=== PATIENT | female | born 1990 | race Caucasian/White ===

== ENCOUNTER 2017-06-13 18:19 | Emergency (ER) | payer OTHER, SELFPAY ==
[2017-06-13 18:22] VITALS: BP 124/86; PULSE 103; RESP 20; TEMP 36.9; O2SAT 100; BMI 22.4
--- NOTE | 2017-06-13 20:02 | ED_ITS ---
HPI - SOB/Dyspnea General Chief Complaint: Shortness of Breath/Dyspnea Stated Complaint: SOB,ASTHMA,INHALER NOT WORKING Time Seen by Provider: 06/13/17 20:02 History of Present Illness Patient is a 26-year-old female presenting with increasing shortness of breath on. She says it got significantly worse today. She has a history of asthma she used her albuterol inhaler multiple times without any relief. All no prior history of intubations or hospitalizations. She had asthma as a child, and out grew it, but they came back at . She now has a dry nonproductive cough every time she takes a deep breath. If she sits still and does not move she has no difficulty. Every time she tries to talk or move all the coughing starts. She denies any gross severe shortness of breath or chest pain or palpitations does complain of chest tightness Related Data Home Medications Medication Instructions Recorded Confirmed metoclopramide HCl 10 mg PO Q8H #0 09/13/16 Previous Rx's Medication Instructions Recorded norethindrone (contraceptive) 0.35 mg PO QDAY #1 pac 01/06/17 [[facility]] prednisone 40 mg PO DAILY #8 tab 06/13/17 Allergies Allergy/AdvReac Type Severity Reaction Status Date / Time No Known Allergies Allergy Uncoded 05/19/17 12:18 Review of Systems Review of Systems All systems reviewed & are unremarkable except as noted in HPI and below Constitutional Denies body ache(s), Denies fatigue and Denies fever(s) Eyes Denies itchy eyes ENT Ears, Nose, Mouth, and Throat: Denies throat swelling and Denies tongue swelling Cardiovascular Reports chest pain (Tightness), Denies syncope and Denies rapid heart rate Respiratory Reports as per HPI, Denies chest congestion, Reports cough, Denies excessive phlegm production and Denies stridor Gastrointestinal Gastrointestinal: Denies abdominal pain and Denies vomiting Neurologic Denies syncope Endocrine Denies fatigue Allergic/Immunologic Denies itchy eyes, Denies throat swelling and Denies tongue swelling PFSH Family History Grandmother Age: 76 Heart disease High cholesterol Grandfather Age: 67 Cancer Hypertension High cholesterol Grandmother Age: 65 Skin cancer Heart disease Hypertension Social History Smoking Status: Never smoker MDM - SOB/Dyspnea MDM Narrative Medical decision making narrative: Patient is feeling significantly better after DuoNeb and prednisone. She clinically feels like this is asthma and allergy related. \dry nonproductive cough without fever and worse with deep breathing of clinically reactive airway and asthma related though others diagnosis is have been considered no further testing or imaging needed at this time. Differential Diagnosis Likely community acquired pneumonia, asthma with exacerbation and pulmonary embolism ECG Data Attestation: I personally reviewed and interpreted this ECG as follows: Prior ECG tracings: not available for review Interpretation: Normal sinus rhythm his rate 79 no acute ischemia and no prior Discharge Plan Departure Patient Disposition: Home, Self-Care Clinical Impression: Asthma with exacerbation Discharge Date/Time: 06/13/17 21:28 Interventions: ED Discharge Assessment Last Done: 06/13/17 21:26 Instructions: Asthma -- Adult Activity Restrictions/Additional Instructions: *You have been diagnosed with asthma exacerbation *What to do: Avoid triggers such as dust, pets, pollens as best as possible *Take medications as directed -start prednisone to take once a day as directed may start tomorrow -albuterol every 4 hr with spacer, would do for the next 24 hr while awake, and then taper off *Follow up with your primary care provider in 2-3 days *Return to ER if you should have increasing shortness of breath, chest tightness , and eating albuterol more frequently or not getting any relief or any new, worsening or concerning symptoms Prescriptions: New prednisone 20 mg tablet 40 mg PO DAILY Qty: 8 RF: 0 No Action metoclopramide HCl 10 MG tablet 10 mg PO Q8H Qty: 0 RF: 0 norethindrone (contraceptive) [[facility]] 0.35 MG tablet 0.35 mg PO QDAY Qty: 1 RF: 12 Referrals: Alvino Avilez MD [Primary Care Provider] -
[2017-06-13] MEDS: ALBUTEROL/IPRATROPIUM 3 ML AMPUL INH (20:29)
[2017-06-13 20:34] VITALS: O2SAT 99
[2017-06-13] MEDS: predniSONE 20 MG TABLET 40 MG PO (20:36)
[2017-06-13 20:41] VITALS: BP 99/54; PULSE 87; RESP 18; O2SAT 100
--- NOTE | 2017-06-13 21:13 | PC.NURSE ---
pt reports feeling better. pt talking in full sentences
[2017-06-13 21:26] VITALS: BP 93/53; PULSE 92; RESP 16; O2SAT 100
== END 2017-06-13 21:28 | disposition home or self-care (01) ==
PROVIDERS: Emergency Provider Emergency Medicine; PCP Family Medicine
DX: J45.901 Unspecified asthma with (acute) exacerbation (principal)
CPT/HCPCS: 93005; 94640; 99283

== ENCOUNTER 2017-07-02 15:56 | Emergency (ER) | payer OTHER, SELFPAY ==
[2017-07-02 16:01] VITALS: BP 117/74; PULSE 77; RESP 15; TEMP 36.7; O2SAT 100; BMI 23.4
--- NOTE | 2017-07-02 16:04 | ED_ITS ---
HPI - Abdominal Pain <Julienne Dia PA-C - Last Filed: 07/02/17 21:18> General Chief Complaint: Abdominal Pain Stated Complaint: THINKS SHE HAS A HERNIA Time Seen by Provider: 07/02/17 16:00 Source: patient Mode of arrival: ambulatory Limitations: no limitations History of Present Illness HPI narrative: This 26-year-old female states that she was sent here by her PCP for evaluation today due to possible hernia. States that she had an appointment on Wednesday, but had some increased bloating and abdominal discomfort and is planning to go camping this weekend, so they advised her not to wait. Two weeks ago, she was seen for asthma exacerbation. She had been coughing a lot, and noted a small area of swelling or a bump near her umbilicus. She states that this has been somewhat tender. She states she has had somewhat decreased appetite and forcing herself to eat more. She has had more nausea but no vomiting. She normally has a bowel movement daily but last 1 was 4 days ago, states she is afraid to strain due to the possible hernia which she feels when she does strain. She states that she has not been sick, no fever, feels like asthma exacerbation is getting better. She has a history of gastroparesis diagnosed 5 years ago, states she always has nausea and stomach upset due to this. She takes Reglan as needed which is helpful but causes sleepiness so has not taken recently including for this exacerbation. She states that she was told she had a hernia on endoscopy at that time. She denies any urinary symptoms, compliant with progesterone pill for control. Denies other complaints on systems review Related Data Home Medications Medication Instructions Recorded Confirmed norethindrone (contraceptive) 0.35 mg PO QPM 07/02/17 07/02/17 Allergies Allergy/AdvReac Type Severity Reaction Status Date / Time No Known Allergies Allergy Uncoded 07/02/17 16:01 Review of Systems <Julienne Dia PA-C - Last Filed: 07/02/17 21:18> Review of Systems All systems reviewed & are unremarkable except as noted in HPI and below Exam <Julienne Dia PA-C - Last Filed: 07/02/17 21:18> Narrative Exam Narrative: GENERAL APPEARANCE: Patient sitting comfortably, in no distress. HEENT: PERRL, EOMI, no scleral icterus, conjunctivae pink NECK: Supple LUNGS: Clear to auscultation bilaterally. HEART: Rate and rhythm regular, normal S1 and S2, no S3 or S4. ABDOMEN: Soft, nondistended, bowel sounds present x 4 quadrants, no clear masses palpable, no hepatosplenomegaly. She has mild to moderate periumbilical TTP without guarding or rebound. Just to the L. of the umbilicus with patient standing and straining only it appears that the rectus muscle is slightly more prominent and tender. There is no circumscribed mass EXTREMITIES: No edema, no cyanosis DERMATOLOGIC: No jaundice or exanthem NEUROLOGIC: Alert and oriented with normal speech and coordination Initial Vital Signs Initial Vital Signs: Vital Signs Temperature 98.1 F 07/02/17 16:01 Pulse Rate 77 07/02/17 16:01 Respiratory Rate 15 07/02/17 16:01 Blood Pressure 117/74 07/02/17 16:01 Pulse Oximetry 100 07/02/17 16:01 <Stephen Galvin MD - Last Filed: 07/03/17 15:32> Initial Vital Signs Initial Vital Signs: Vital Signs Temperature 98.1 F 07/02/17 16:01 Pulse Rate 77 07/02/17 16:01 Respiratory Rate 15 07/02/17 16:01 Blood Pressure 117/74 07/02/17 16:01 Pulse Oximetry 100 07/02/17 16:01 Course <Julienne Dia PA-C - Last Filed: 07/02/17 21:18> Hospital Course: Have reviewed with patient today that her exam is not quite typical for a hernia in terms of discrete palpable mass or location, but may certainly have one. There does not appear to be any acute surgical issue. Likely her chronic abdominal bloating and discomfort are exacerbated by constipation, and if she has a hernia that is as well. Advised to treat this. Advised on signs of incarcerated hernia and she agrees to return if any acute worsening, otherwise will follow up with PCP next week for reassessment Orders Ordered: ED Orders 07/02/17 16:22 XR acute abdomen series Stat Vital Signs - 8 hr 07/02/17 16:01 07/02/17 17:18 Temperature 98.1 F Pulse Rate 77 67 Respiratory Rate 15 16 Blood Pressure 117/74 Blood Pressure [Left Arm] 97/67 Pulse Oximetry 100 100 <Stephen Galvin MD - Last Filed: 07/03/17 15:32> Orders Ordered: ED Orders 07/02/17 16:22 XR acute abdomen series Stat Vital Signs - 8 hr 07/02/17 16:01 07/02/17 17:18 Temperature 98.1 F Pulse Rate 77 67 Respiratory Rate 15 16 Blood Pressure 117/74 Blood Pressure [Left Arm] 97/67 Pulse Oximetry 100 100 MDM - Abdominal Pain <Julienne Dia PA-C - Last Filed: 07/02/17 21:18> Imaging Data Abdominal x-ray: Radiologist's impression: View Report History [address] [address] XRay Report Signed Patient: Mary Dimas MR#: [id number] : 1990 Acct:[id number] Age/Sex: 26 / F Date of Service: 07/02/17 Loc: ED Accession Number: [id number] Procedure: XR acute abdomen series Ordering Provider: Julienne Dia P.A-C PROCEDURE: XR ACUTE ABDOMEN SERIES INDICATIONS: constipation TECHNIQUE: One view chest and two views of the abdomen were acquired. COMPARISON: None. FINDINGS: Surgical changes and devices: None. Chest: Lungs are clear. 2 small rounded densities in the left upper lobe between the first and second anterior ribs appear likely to be vessels on end. Heart size is normal. No pleural effusions. No pneumoperitoneum. Abdomen: Bowel gas pattern shows a moderate amount of fecal loading. No small bowel distention. No suspicious calcifications. Visualized solid organ contours appear normal. Bones: No suspicious bony lesions. IMPRESSION: 1. Normal chest. 2. No bowel obstruction or free air. 3. Possible constipation. Dictated by: Kenny Hyatt M.D. on 07/02/2017 at 16:43 Approved by: Kenny Hyatt M.D. on 07/02/2017 at 16:45 Discharge Plan Departure Patient Disposition: Home, Self-Care Clinical Impression: Abdominal pain, Constipation Discharge Date/Time: 07/02/17 17:20 Interventions: ED Discharge Assessment Last Done: 07/02/17 17:20 Instructions: DI for Abdominal Pain-Adult, DI for Constipation Activity Restrictions/Additional Instructions: You have a little bit of asymmetry in the muscle next to the left side of the belly button when you strain versus the right. It is not clear on exam today whether you have a true hernia there, but since this pain and bulging have worsened with your constipation it is reasonable to try treating that and then reassessed. Please start [id number] Colace or docusate, which is stool softener, 100 mg twice daily. That can be increased to as much as 400 mg daily if needed. Increase your intake of fluids, and prune juice may be helpful as well. He may also want to try taking your Reglan this evening. You should see your PCP next week as we talked about to reassess when the constipation is better and determine whether to do a referral or further workup. You should return right away if you have persistent or worsening pain or can get relief with pushing the bulge down as you can now. You should avoid all straining on the abdominal wall including bending, lifting, twisting Prescriptions: No Action norethindrone (contraceptive) 0.35 mg Tablet 0.35 mg PO QPM RF: 0 Referrals: Alvino Avilez MD [Primary Care Provider] - <Stephen Galvin MD - Last Filed: 07/03/17 15:32> Cosign ED Attending Cosignature Attestation: I was the attending of record and available in the ED. I attest to the documentation and agree with the assessment and plan.
--- NOTE | 2017-07-02 16:22 | DI.RAD.S_ITS ---
PROCEDURE: XR ACUTE ABDOMEN SERIES INDICATIONS: constipation TECHNIQUE: One view chest and two views of the abdomen were acquired. COMPARISON: None. FINDINGS: Surgical changes and devices: None. Chest: Lungs are clear. 2 small rounded densities in the left upper lobe between the first and second anterior ribs appear likely to be vessels on end. Heart size is normal. No pleural effusions. No pneumoperitoneum. Abdomen: Bowel gas pattern shows a moderate amount of fecal loading. No small bowel distention. No suspicious calcifications. Visualized solid organ contours appear normal. Bones: No suspicious bony lesions. IMPRESSION: 1. Normal chest. 2. No bowel obstruction or free air. 3. Possible constipation. Dictated by: Kenny Hyatt M.D. on 07/02/2017 at 16:43 Approved by: Kenny Hyatt M.D. on 07/02/2017 at 16:45
[2017-07-02 17:18] VITALS: BP 97/67; PULSE 67; RESP 16; O2SAT 100
== END 2017-07-02 17:20 | disposition home or self-care (01) ==
PROVIDERS: Emergency Provider Internal Medicine; PCP Family Medicine
DX: R10.9 Unspecified abdominal pain (principal); K59.00 Constipation, unspecified
CPT/HCPCS: 74022; 81003; 81025; 99282; 99284

== ENCOUNTER → 2017-09-14 16:23 | Outpatient (CLI) | payer OTHER, SELFPAY ==
[2017-09-14 17:19] LABS: Add Manual Diff / Slide Review NO; Basophils Percent Auto 0.4 % (0-2); Hematocrit 36.6 % (36-46); Hemoglobin 12.9 g/dL (12.0-16.0); Lymphocytes Percent Auto 23.4 % (25-40); Mean Corpuscular HGB Conc 35.1 % (30-36); Mean Corpuscular Hemoglobin 32.5 PG (26-34); Mean Corpuscular Volume 92.5 fL (80-100); Monocytes Percent Auto 7.3 % (3-14); Neutrophils Absolute Auto 7600 /uL (3000-5900); Neutrophils Percent Auto 67.9 % (50-75); Platelet Count 215 X10^3/uL (150-400); Red Blood Cell Count 3.96 X10^6/uL (4.0-5.2); Red Cell Distribution Width 12.7 % (11.6-14.8); White Blood Cell Count 11.2 X10^3/uL (4.5-11.0)
[2017-09-14 19:15] LABS: HIV 1 and 2 Antibody NEGATIVE (NEGATIVE); Hep C Virus Ab w/Reflex Quant NEGATIVE s/c (NEGATIVE); Hepatitis B Surface Antigen NEGATIVE s/c (NEGATIVE); Rubella Antibody IgG 25.8 IU/mL (>15)
[2017-09-16 14:15] LABS: HSV 2 IGG AB < 0.90 index (< 0.90); HSV1IGG < 0.90 index (< 0.90)
[2017-09-16 14:30] LABS: Varicella IgG Antibody < 135.00 Index (< 135.00)
[2017-09-21 10:24] LABS: Rapid Plasma Reagin NON-REACTIVE
== END ==
PROVIDERS: PCP Family Medicine; Visit Provider Family Medicine
DX: Z34.91 Encounter for supervision of normal pregnancy, unspecified, first trimester (principal)
CPT/HCPCS: 36415; 80055; 86695; 86696; 86703; 86787; 86803; 86850; 86900; 86901; 87077; 87086

== ENCOUNTER → 2017-11-08 12:15 | Outpatient (CLI) | payer OTHER, SELFPAY ==
[2017-11-15 10:12] LABS: AFP, Serum 43.1 ng/mL; Calc Gestational Age 15.7; Cigarette Smoker N; Donated Egg NOT GIVEN; Donor Egg Age NOT GIVEN; Estriol, Free 0.88 ng/mL; Inhibin A, Dimeric 229 pg/mL; Maternal Weight 133 lbs; Number of Fetuses 1; Previous Pregnancy Down Syndro NOT GIVEN; hCG, MoM 1.43; hCG, Serum 57.1 IU/mL
== END ==
PROVIDERS: PCP Family Medicine; Visit Provider Family Medicine
DX: Z34.82 Encounter for supervision of other normal pregnancy, second trimester (principal); Z3A.16 16 weeks gestation of pregnancy
CPT/HCPCS: 36415; 82105; 82677; 84702; 86336

== ENCOUNTER → 2017-12-07 10:10 | Outpatient (CLI) | payer OTHER, SELFPAY ==
--- NOTE | 2017-12-07 10:13 | DI.US.S_ITS ---
PROCEDURE: US OB >= 14 WEEKS FETUS INDICATIONS: ANATOMIC SURVEY OUTSIDE/PRIOR DATING DATA: Last menstrual period (LMP): Unknown. LMP-based estimated date of delivery (CHARAN): N./A.. First dating scan (date and location): 09/14/17. Estimated date of delivery (CHARAN) from first dating scan: 05/01/17. TECHNIQUE: Real-time scanning was performed of the fetus, with image documentation and biometric measurements. Endovaginal scanning: No COMPARISON: [facility], , OB <= 14 WEEKS FETUS, 09/14/2017, 16:13. FINDINGS: General: A single living intrauterine gestation is present. Presentation: Transverse. Placenta: Placental position is anterior, without previa. Amniotic fluid index: 13.0 cm, normal range is 5-24 cm. heart rate: 133 beats per minute. Maternal cervical canal: 6.3 cm long. Normal lower limit is 2.5 cm. biometrics: Biparietal diameter: 20 weeks 2 days Head circumference: 20 weeks 2 days Abdominal circumference: 20 weeks 3 days Femur length: 19 weeks 7 days Estimated gestational age from initial scan: 19 weeks 2 days Composite gestational age from present scan: 20 weeks 1 day Estimated weight and percentile: 324 g, 83rd percentile Measurement variability for biometric dating: +/- 7 days from 14 weeks to 15 weeks 6 days gestation, +/- 10 days from 16 weeks to 21 weeks 6 days gestation, +/- 2 weeks from 22 weeks to 27 weeks 6 days gestation, +/- 3 weeks for 28 weeks gestation or later. weight reference: 4500 g or EFW >90/95% is considered macrosomia or large for gestational age. EFW <10% is small for gestational age. EFW 5% or less is considered intra-uterine growth restriction. Anatomic survey: Neuro: Ventricles are non-dilated at less than 10 mm. Cisterna magna is normal at 3-11 mm. Cerebellum is normal in size and morphology. Nuchal skin fold: Normal at less than 6 mm between 14-21 weeks gestational age. Face: Nose and lips, facial profile are normal. Spine: No evidence for spina bifida. Heart: 4-chambered heart is present, with normal ventricular outflow tracts. Diaphragm: Diaphragm is intact. Stomach: Left-sided stomach is present. Kidneys: No hydronephrosis. Normal is less than 5 mm in 2nd trimester, less than 7 mm in 3rd trimester. Cord: 3-vessel cord has orthotopic insertion. Bladder: Normal in size. Extremities: All 4 extremities identified. IMPRESSION: Normal interval growth and normal anatomy. Dictated by: Herberth CLAYTON Interpreted: Adarsh Burciaga MD on 12/07/2017 at 13:53 Approved by: Adarsh Burciaga M.D. on 12/07/2017 at 15:28
== END ==
PROVIDERS: PCP Family Medicine; Visit Provider Family Medicine
DX: Z34.82 Encounter for supervision of other normal pregnancy, second trimester (principal); Z3A.20 20 weeks gestation of pregnancy
CPT/HCPCS: 76811

== ENCOUNTER 2018-01-02 13:03 | Emergency (ER) | payer OTHER, SELFPAY ==
--- NOTE | 2018-01-02 13:07 | ED.SOB ---
HPI - SOB/Dyspnea General Chief Complaint: Shortness of Breath/Dyspnea Stated Complaint: TROUBLE CATCHING BREATH, 24 WEEKS PREG Time Seen by Provider: 01/02/18 13:06 Source: patient Mode of arrival: ambulatory Limitations: no limitations History of Present Illness 27-year-old female at 24 weeks EGA here for evaluation of shortness of breath and chest pressure. Patient states this has been going on for the past couple days. Was a rather sudden onset last week. She stated that she did have a fever on Wednesday but not today. She states that she felt like she had the flu on Wednesday with fevers and body aches and chills. She is coughing that is nonproductive. Has some sinus congestion. No urinary symptoms. No loss of fluid, no vaginal bleeding. Patient also with a recent flight from [place] just prior to the onset of the symptoms. No lower extremity swelling. Related Data Home Medications Medication Instructions Recorded Confirmed norethindrone (contraceptive) 0.35 mg PO QPM 07/02/17 07/14/17 Previous Rx's Medication Instructions Recorded docusate sodium 100 mg capsule 100 mg PO BID #60 cap 09/01/17 ondansetron 4 mg disintegrating 4 mg PO Q6H PRN #30 tab 09/01/17 tablet metoclopramide 10 mg tablet See Label Instructions .ROUTE TID 10/27/17 PRN #60 tab azithromycin See Label Instructions .ROUTE 01/02/18 .COMPLEX #6 tab Allergies Allergy/AdvReac Type Severity Reaction Status Date / Time No Known Drug Allergies Allergy Verified 01/02/18 13:30 Review of Systems Constitutional Reports fatigue, Reports fever(s) and Denies headache(s) ENT Ears, Nose, Mouth, and Throat: Denies vertigo and Denies headache(s) Cardiovascular Reports chest pain (Described as a pressure), Denies pedal edema, Denies irregular heart rhythm, Denies palpitations, Reports dyspnea and Reports dyspnea on exertion Respiratory Reports cough, Reports pain with cough, Reports dyspnea, Reports dyspnea on exertion and Denies wheezing Gastrointestinal Gastrointestinal: Denies abdominal pain, Denies nausea and Denies vomiting Genitourinary Denies dysuria and Denies vaginal discharge Musculoskeletal Denies myalgias and Denies arthralgias Integumentary/Breasts Denies lesions and Denies rash Neurologic Denies vertigo and Denies headache(s) Endocrine Reports fatigue and Denies palpitations Hematologic/Lymphatic Comments: Not on anticoagulation Allergic/Immunologic Denies wheezing PFSH Medical History No significant past surgical history (Acute) Asthma with allergic rhinitis (Chronic) Eczema (Chronic) Frequent UTI (Chronic) Gastroparesis (Chronic) Irregular menstrual cycle (Chronic) Migraines (Chronic) Social History marital status: Smoking Status: Never smoker Exam Initial Vital Signs Initial Vital Signs: Vital Signs Temperature 97.9 F 01/02/18 13:16 Pulse Rate 112 H 01/02/18 13:16 Respiratory Rate 20 01/02/18 13:16 Blood Pressure 115/67 01/02/18 13:16 Pulse Oximetry 100 01/02/18 13:16 Const General: cooperative, well developed and well groomed Orientation: alert, awake and oriented x3 HENMT Head: normal to inspection and normocephalic Chest Chest: normal inspection of the chest Resp Effort & Inspection: labored, no pursed lip breathing, no retractions, tachypneic and no use of accessory muscles Auscultation: clear to auscultation bilaterally, no rhonchi and no wheezes Cardio Rate: tachycardic Rhythm: regular rhythm Pulses: radial pulses present GI Inspection: distended () Palpation: soft, No firm and No tender Skin Lesions: no lesions Rashes: no rashes Neuro General: alert, awake and oriented x3 Cognition: normal cognition Speech: speech normal Extrem General: normal to inspection, capillary refill normal, no pedal edema and No edema Psych Appearance: grossly normal and well kempt Course Orders Ordered: ED Orders 01/02/18 13:29 CT angio chest PE protocol Stat B Type Natriuretic Peptide Stat Basic Metabolic Panel Stat Complete Blood Count AUTO DIFF Stat Influenza A and B by PCR Rapid Stat Troponin I Stat RT Consult Eval and Treat Now Discontinued Medications Albuterol (Ventolin) 2.5 mg INH NOW ONE Stop: 01/02/18 13:28 Last Admin: 01/02/18 13:31 Dose: 2.5 mg Sodium Chloride (Normal Saline 0.9%) 1,000 mls @ 500 mls/hr IV BOLUS ONE Stop: 01/02/18 15:26 Last Admin: 01/02/18 13:42 Dose: 500 mls/hr Vital Signs - 8 hr 01/02/18 13:16 01/02/18 13:31 01/02/18 13:44 Temperature 97.9 F Pulse Rate 112 H 95 H 101 H Respiratory Rate 20 15 15 Blood Pressure 115/67 Blood Pressure [Right Arm] 99/53 L Pulse Oximetry 100 100 99 01/02/18 14:35 01/02/18 15:06 Temperature Pulse Rate 89 102 H Respiratory Rate 13 18 Blood Pressure Blood Pressure [Right Arm] 95/49 L 91/51 L Pulse Oximetry 100 98 MDM - SOB/Dyspnea Lab Data Attestation: I reviewed the patient's lab results. Result diagrams: 01/02/18 13:29 01/02/18 13:29 Lab Results 01/02/18 01/02/18 01/02/18 Range/Units 13:29 13:29 13:29 WBC 8.8 (4.5-11.0) X10^3/uL RBC 3.35 L (4.0-5.2) X10^6/uL Hgb 11.3 L (12.0-16.0) g/dL Hct 32.1 L (36-46) % MCV 95.9 (80-100) fL MCH 33.8 (26-34) PG MCHC 35.3 (30-36) % RDW 12.5 (11.6-14.8) % Plt Count 195 (150-400) X10^3/uL Neut % (Auto) 75.9 H (50-75) % Lymph % (Auto) 16.8 L (25-40) % [place] % (Auto) 6.3 (3-14) % Eos % (Auto) 0.6 L (2-4) % Baso % (Auto) 0.4 (0-2) % Neut # (Auto) 6700 H (5585-2402) /uL Sodium 140 (137-145) mmol/L Potassium 3.3 L (3.4-5.1) mmol/L Chloride 106 (98-107) mmol/L Carbon Dioxide 23 (22-32) mmol/L BUN 7 (7-17) mg/dL Creatinine 0.40 L (0.52-1.04) mg/dL Estimated GFR > 60.0 (>60) mL/min BUN/Creatinine Ratio 17.5 (6-22) Glucose 94 (70-100) mg/dL Calcium 8.6 (8.4-10.2) mg/dL Troponin I < 0.012 (0.01-0.034) ng/mL B-Natriuretic Peptide < 30.0 (<100) Influenza A & B (PCR) (Negative) 01/02/18 Range/Units 13:29 WBC (4.5-11.0) X10^3/uL RBC (4.0-5.2) X10^6/uL Hgb (12.0-16.0) g/dL Hct (36-46) % MCV (80-100) fL MCH (26-34) PG MCHC (30-36) % RDW (11.6-14.8) % Plt Count (150-400) X10^3/uL Neut % (Auto) (50-75) % Lymph % (Auto) (25-40) % [place] % (Auto) (3-14) % Eos % (Auto) (2-4) % Baso % (Auto) (0-2) % Neut # (Auto) (0365-2688) /uL Sodium (137-145) mmol/L Potassium (3.4-5.1) mmol/L Chloride (98-107) mmol/L Carbon Dioxide (22-32) mmol/L BUN (7-17) mg/dL Creatinine (0.52-1.04) mg/dL Estimated GFR (>60) mL/min BUN/Creatinine Ratio (6-22) Glucose (70-100) mg/dL Calcium (8.4-10.2) mg/dL Troponin I (0.01-0.034) ng/mL B-Natriuretic Peptide (<100) Influenza A & B (PCR) Negative (Negative) Imaging Data CT scan - chest: Radiologist's impression: PROCEDURE: CT ANGIO CHEST PE PROTOCOL INDICATIONS: Chest pain, shortness of breath, tachycardia, 24 weeks TECHNIQUE: After the administration of intravenous contrast, 2 mm thick sections acquired from the pulmonary apices to the posterior costophrenic angles. 3-dimensional maximum intensity projection (MIP) coronal and sagittal reformats were then acquired through the thorax. For radiation dose reduction, the following was used: automated exposure control, adjustment of mA and/or kV according to patient size. COMPARISON: None. FINDINGS: Image quality: Excellent. Pulmonary arteries: Pulmonary arteries are normal in size, and demonstrate no intraluminal filling defects to suggest central pulmonary embolism. Lungs and pleura: Multiple bilateral areas of rounded pulmonary opacities are present the largest in the right lower lobe measuring approximately 15 mm. There are approximately 20-24 foci identified. Mediastinum: Heart size is normal, without pericardial effusion. No mediastinal or hilar adenopathy. Thoracic aorta is normal in caliber and enhancement. Esophagus is normal in caliber, without hiatal hernia. Bones and chest wall: No suspicious bony lesions. Ribs and thoracic spine appear intact throughout. Thyroid gland is unremarkable. No axillary or supraclavicular adenopathy. Abdomen: Visualized upper abdominal solid organs appear normal in the early arterial phase of enhancement. IMPRESSION: 1. Multifocal areas of patchy rounded pulmonary opacities as above. Overall appearance is suggestive of infection/inflammation. However, given the multifocal nature of lesion, other etiologies such as metastatic disease cannot be excluded. Recommend short interval imaging followup for infection after appropriate therapy to document resolution and exclude persistence of underlying mass lesions raising concern for malignancy. Dictated by: Mercy Bailey M.D. on 01/02/2018 at 14:56 Approved by: Mercy Bailey M.D. on 01/02/2018 at 14:59 ECG Data Attestation: I personally reviewed and interpreted this ECG as follows: Prior ECG tracings: not available for review Interpretation: Sinus tachycardia Ventricular rate of 100 Normal QRS Normal QTC Normal intervals Normal axis No ST T wave changes MDM Narrative Medical decision making narrative: Patient is tachycardic and tachypneic and short of breath in the setting of and her recent airline flight. Had a high concern for pulmonary embolism. Had a long discussion with the patient regarding this. We did discuss that we would need a CT scan to evaluate for this however given her status her child would be exposed to radiation. We discussed the benefits to include diagnosing a pulmonary embolism which could potentially be life-threatening verses the CT scan. After this discussion the patient expressed understanding of all of these risks. She expressed understanding that her child would be exposed to some radiation. She did agree to have the CT scan performed. The consent was signed. She had no questions prior to obtaining the CT. This did come back negative for pulmonary embolism. Labs were unremarkable. Her heart rate did improve while she was here in the ER. She was given a albuterol neb which did not seem to help her symptoms. The CT scan showed multiple patchy infiltrates and in the setting of a productive cough and fever within the past 48 hr I do suspect pneumonia over malignancy. I did inform the patient that she needed to follow up with her primary doctor regarding the CT scan when she is done with the antibiotics to make sure that the areas have cleared. She expressed understanding of this. I feel like she is stable for discharge. Will send home with azithromycin. She has no risk factors for healthcare associated pneumonia. She was given return precautions. All questions were answered. She expressed agreement with this plan. Discharge Plan Departure Patient Disposition: Home Clinical Impression: Pneumonia Instructions: Medications and , DI for Pneumonia -- Adult Activity Restrictions/Additional Instructions: Recommend you contact your primary care doctor and also your OB regarding her diagnosis today. You also need to talk with your primary care doctor regarding follow-up to make sure the findings on the CT scan resolved with the antibiotics that you were given today. Return to the emergency department for any new symptoms, worsening shortness of breath, chest pain, rashes or any other concerning symptoms. Prescriptions: New azithromycin 250 mg tablet See Label Instructions .ROUTE .COMPLEX Qty: 6 RF: 0 No Action docusate sodium [Colace] 100 mg capsule 100 mg PO BID Qty: 60 RF: 3 ondansetron [Zofran ODT] 4 mg tablet,disintegrating 4 mg PO Q6H PRN (Reason: nausea and vomiting) Qty: 30 RF: 0 metoclopramide HCl [Reglan] 10 mg tablet See Label Instructions .ROUTE TID PRN (Reason: nausea and vomiting) Qty: 60 RF: 2 norethindrone (contraceptive) 0.35 mg Tablet 0.35 mg PO QPM RF: 0
[2018-01-02 13:16] VITALS: BP 115/67; PULSE 112; RESP 20; TEMP 36.6; O2SAT 100; BMI 26.9
--- NOTE | 2018-01-02 13:29 | DI.CT.S_ITS ---
PROCEDURE: CT ANGIO CHEST PE PROTOCOL INDICATIONS: Chest pain, shortness of breath, tachycardia, 24 weeks TECHNIQUE: After the administration of intravenous contrast, 2 mm thick sections acquired from the pulmonary apices to the posterior costophrenic angles. 3-dimensional maximum intensity projection (MIP) coronal and sagittal reformats were then acquired through the thorax. For radiation dose reduction, the following was used: automated exposure control, adjustment of mA and/or kV according to patient size. COMPARISON: None. FINDINGS: Image quality: Excellent. Pulmonary arteries: Pulmonary arteries are normal in size, and demonstrate no intraluminal filling defects to suggest central pulmonary embolism. Lungs and pleura: Multiple bilateral areas of rounded pulmonary opacities are present the largest in the right lower lobe measuring approximately 15 mm. There are approximately 20-24 foci identified. Mediastinum: Heart size is normal, without pericardial effusion. No mediastinal or hilar adenopathy. Thoracic aorta is normal in caliber and enhancement. Esophagus is normal in caliber, without hiatal hernia. Bones and chest wall: No suspicious bony lesions. Ribs and thoracic spine appear intact throughout. Thyroid gland is unremarkable. No axillary or supraclavicular adenopathy. Abdomen: Visualized upper abdominal solid organs appear normal in the early arterial phase of enhancement. IMPRESSION: 1. Multifocal areas of patchy rounded pulmonary opacities as above. Overall appearance is suggestive of infection/inflammation. However, given the multifocal nature of lesion, other etiologies such as metastatic disease cannot be excluded. Recommend short interval imaging followup for infection after appropriate therapy to document resolution and exclude persistence of underlying mass lesions raising concern for malignancy. Dictated by: Mercy Bailey M.D. on 01/02/2018 at 14:56 Approved by: Mercy Bailey M.D. on 01/02/2018 at 14:59
[2018-01-02 13:31] VITALS: PULSE 95; RESP 15; O2SAT 100
[2018-01-02] MEDS: ALBUTEROL 2.5 MG/3 ML NEB (ADULT) INH (13:31)
[2018-01-02] MEDS: SODIUM CHLORIDE 0.9% 1,000 ML 500 ML IV (13:42)
[2018-01-02 13:44] VITALS: BP 99/53; PULSE 101; RESP 15; O2SAT 99
[2018-01-02 13:49] LABS: Add Manual Diff / Slide Review NO; Basophils Percent Auto 0.4 % (0-2); Eosinophils Percent Auto 0.6 % (2-4); Hematocrit 32.1 % (36-46); Hemoglobin 11.3 g/dL (12.0-16.0); Lymphocytes Percent Auto 16.8 % (25-40); Mean Corpuscular HGB Conc 35.3 % (30-36); Mean Corpuscular Hemoglobin 33.8 PG (26-34); Mean Corpuscular Volume 95.9 fL (80-100); Monocytes Percent Auto 6.3 % (3-14); Neutrophils Absolute Auto 6700 /uL (3000-5900); Neutrophils Percent Auto 75.9 % (50-75); Platelet Count 195 X10^3/uL (150-400); Red Blood Cell Count 3.35 X10^6/uL (4.0-5.2); Red Cell Distribution Width 12.5 % (11.6-14.8); White Blood Cell Count 8.8 X10^3/uL (4.5-11.0)
--- NOTE | 2018-01-02 13:53 | PC.NURSE ---
Pt having difficulty speaking in full sentences while walking. Shortness of breath is improved with upright position and rest. Currently 24 weeks . No complications with current or prior pregnancies. Got back from [place] on Wednesday via airplane. Had a sore throat on Wednesday, fever or Wednesday, and worsening cough and shortness of breath Wednesday and today.
[2018-01-02 14:07] LABS: BUN Creatinine Ratio 17.5 (6-22); Blood Urea Nitrogen 7 mg/dL (7-17); Calcium 8.6 mg/dL (8.4-10.2); Carbon Dioxide 23 mmol/L (22-32); Chloride 106 mmol/L (98-107); Estimated Glomerular Filt Rate > 60.0 mL/min (>60); Glucose 94 mg/dL (70-100); HEMOLYSIS < 15 (0-50); Potassium 3.3 mmol/L (3.4-5.1); Sodium 140 mmol/L (137-145)
[2018-01-02 14:23] LABS: Troponin I < 0.012 ng/mL (0.01-0.034)
[2018-01-02 14:25] LABS: B Type Natriuretic Peptide < 30.0 (<100)
[2018-01-02 14:35] VITALS: BP 95/49; PULSE 89; RESP 13; O2SAT 100
[2018-01-02 15:06] VITALS: BP 91/51; PULSE 102; RESP 18; O2SAT 98
[2018-01-02 15:22] LABS: Influenza A and B by PCR Rapid Negative (Negative)
== END 2018-01-02 15:57 | disposition home or self-care (01) ==
PROVIDERS: Emergency Provider Emergency Medicine; PCP Family Medicine
DX: O99.512 Diseases of the respiratory system complicating pregnancy, second trimester (principal); Z3A.24 24 weeks gestation of pregnancy
CPT/HCPCS: 36591; 71275; 80048; 83880; 84484; 85025; 87400; 93005; 94640; 96360; 96361; 99283; 99284; J7613; Q9967

== ENCOUNTER → 2018-01-26 10:58 | Outpatient (CLI) | payer OTHER, SELFPAY ==
[2018-01-26 12:32] LABS: Hematocrit 31.9 % (36-46); Hemoglobin 11.2 g/dL (12.0-16.0)
[2018-01-26 12:51] LABS: GTT (PREG) 1 Hour PP 50gm Dose 134 mg/dL (76-139)
== END ==
PROVIDERS: PCP Family Medicine; Visit Provider Family Medicine
DX: Z34.82 Encounter for supervision of other normal pregnancy, second trimester (principal); Z3A.24 24 weeks gestation of pregnancy
CPT/HCPCS: 36415; 82950; 85014; 85018

== ENCOUNTER → 2018-04-06 10:54 | Outpatient (CLI) | payer OTHER, SELFPAY ==
[2018-04-07 14:04] LABS: Strep Grp B PCR NEG for Grp B Strep
== END ==
PROVIDERS: PCP Family Medicine; Visit Provider Family Medicine
DX: Z34.83 Encounter for supervision of other normal pregnancy, third trimester (principal); Z3A.37 37 weeks gestation of pregnancy
CPT/HCPCS: 87653

== ENCOUNTER 2018-04-25 10:05 | Inpatient (IN) | payer OTHER, SELFPAY ==
[2018-04-25 13:28] VITALS: BP 104/65
[2018-04-25 13:39] LABS: Add Manual Diff / Slide Review NO; Basophils Absolute Auto 100 /uL (0-100); Eosinophils Absolute Auto 0 /uL (0-450); Eosinophils Percent Auto 0.4 % (2-4); Hemoglobin 10.4 g/dL (12.0-16.0); Lymphocytes Absolute Auto 2200 /uL (1100-4500); Lymphocytes Percent Auto 22.1 % (25-40); Mean Corpuscular HGB Conc 33.5 % (30-36); Mean Corpuscular Hemoglobin 30.4 PG (26-34); Mean Corpuscular Volume 90.8 fL (80-100); Monocytes Absolute Auto 700 /uL (0-900); Monocytes Percent Auto 6.6 % (3-14); Neutrophils Absolute Auto 7000 /uL (1500-7000); Neutrophils Percent Auto 69.9 % (50-75); Platelet Count 213 X10^3/uL (150-400); Red Blood Cell Count 3.41 X10^6/uL (4.0-5.2); Red Cell Distribution Width 13.2 % (11.6-14.8); White Blood Cell Count 10.1 X10^3/uL (4.5-11.0)
[2018-04-25] MEDS: LACTATED RINGERS 1,000 ML 100 ML IV (16:04)
--- NOTE | 2018-04-25 17:29 | PM.HP.1 ---
History of Present Illness Date Patient Seen: 04/25/18 Time Patient Seen: 12:00 Chief complaint: OBSERVATION Narrative: 26-year-old G3 para 2 with an estimated due date of 04/27/2018 consistent with LMP and early ultrasound. Patient presents to the labor and delivery floor with contractions up to every 2 min apart. Worse with activity better with rest. Patient is not complaining of bleeding or spotting or leaking of fluid. She has had good baby activity. Patient is not complaining of fevers chills nausea vomiting and is in good health. She previously had rapid deliveries. On examination in the Center. Patient is aixa intermittently dilated to 4 cm. Stretches cervix 80% effaced -1 station. Patient was sent toe walk for an hour and then came back in her cervix had changed on repeat evaluation. At that point she was transferred to labor and delivery floor and IV was started. history patient started care at approximately 8 weeks of gestational age. She had routine follow-up. She had a total weight gain of a 25 lb. She had no problems during her other than some mild hip pain and sciatic pain and a history of previous rapid labors. She was on vitamins and vitamin C during her . labs blood type A positive antibody screen negative CBC hematocrit 36.6 platelet count 215 VDRL nonreactive hepatitis-B surface antigen negative HIV negative rubella immune hep C negative HSV 1 HSV 2-varicella immune 2nd trimester is aneuploidy screening is negative is glucose challenge test was 134 ultrasound at 20 weeks showed normal growth and normal anatomy scan GBS status is negative. Patient's past history includes seasonal allergies migraine headaches intermittent and frequent urinary tract infection eczema and umbilical hernia Surgeries umbilical hernia surgery Patient History Medical History No significant past surgical history (Acute) Asthma with allergic rhinitis (Chronic) Eczema (Chronic) Frequent UTI (Chronic) Gastroparesis (Chronic) Irregular menstrual cycle (Chronic) Migraines (Chronic) Family & Social History Tobacco & Substance use: Smoking Status Never smoker alcohol intake frequency holiday/special occasion Substance Use Type does not use Meds Home Medications Medication Instructions Recorded Confirmed Type No Known Home Medications 04/25/18 04/25/18 History Allergies Allergy/AdvReac Type Severity Reaction Status Date / Time No Known Drug Allergies Allergy Verified 01/02/18 13:30 Exam Vital Signs (past 8 hours): - 04/25/18 13:28 Blood Pressure 104/65 Narrative Exam Narrative: . General: Alert no apparent distress. Affect is appropriate. Aixa it is uncomfortable. HEENT: Neck is supple without lymphadenopathy pupils equal round and reactive. Cardio: S1-S2 regular rate and rhythm. Respiratory: Lungs clear to auscultation. Abdomen: Gravid. Extremities: Normal deep tendon reflexes trace edema. [place]: Aixa intermittently heart tones: heart tones 135-140 category 1 Objective Labs Result Diagrams: 04/25/18 13:20 Labs: Laboratory Results - last 24 hr 04/25/18 04/25/18 13:20 13:20 WBC 10.1 RBC 3.41 L Hgb 10.4 L Hct 31.0 L MCV 90.8 MCH 30.4 MCHC 33.5 RDW 13.2 Plt Count 213 Neut % (Auto) 69.9 Lymph % (Auto) 22.1 L [place] % (Auto) 6.6 Eos % (Auto) 0.4 L Baso % (Auto) 1.0 Neut # (Auto) 7000 Lymph # (Auto) 2200 [place] # (Auto) 700 Eos # (Auto) 0 Baso # (Auto) 100 Blood Type A Positive Antibody Screen Negative Assessment & Plan Assessment & Plan narrative: 27-year-old G3 para 2 at term in early labor. Patient has a history of rapid deliveries. She will be transferred from the observation room to the labor room an IV was started. heart tones vital signs and blood will be drawn. Which were all stable she will have amniotomy and will monitor closely for breakfast vela of labor. She would like an epidural. Patient's consent was signed risks benefits of the labor and delivery reviewed with the patient.
--- NOTE | 2018-04-25 17:34 | P.HP_ITS ---
History of Present Illness Date Patient Seen: 04/25/18 Time Patient Seen: 12:00 Chief complaint: OBSERVATION Narrative: 26-year-old G3 para 2 with an estimated due date of 04/27/2018 consistent with LMP and early ultrasound. Patient presents to the labor and delivery floor with contractions up to every 2 min apart. Worse with activity better with rest. Patient is not complaining of bleeding or spotting or leaking of fluid. She has had good baby activity. Patient is not complaining of fevers chills nausea vomiting and is in good health. She previously had rapid deliveries. On examination in the Center. Patient is aixa intermittently dilated to 4 cm. Stretches cervix 80% effaced -1 station. Patient was sent toe walk for an hour and then came back in her cervix had changed on repeat evaluation. At that point she was transferred to labor and delivery floor and IV was started. history patient started care at approximately 8 weeks of gestational ag e. She had routine follow-up. She had a total weight gain of a 25 lb. She had no problems during her other than some mild hip pain and sciatic pain and a history of previous rapid labors. She was on vitamins and vitamin C during her . labs blood type A positive antibody screen negative CBC hematocrit 36.6 platelet count 215 VDRL nonreactive hepatitis-B surface antigen negative HIV negative rubella immune hep C negative HSV 1 HSV 2-varicella immune 2nd tr imester is aneuploidy screening is negative is glucose challenge test was 134 ultrasound at 20 weeks showed normal growth and normal anatomy scan GBS status is negative. Patient's past history includes seasonal allergies migraine headaches intermittent and frequent urinary tract infection eczema and umbilical hernia Surgeries umbilical hernia surgery Patient History Medical History No significant past surgical history (Acute) Asthma with allergic rhinitis (Chronic) Eczema (Chronic) Frequent UTI (Chronic) Gastroparesis (Chronic) Irregular menstrual cycle (Chronic) Migraines (Chronic) Family & Social History Tobacco & Substance use: Smoking Status Never smoker alcohol intake frequency holiday/special occasion Substance Use Type does not use Meds Home Medications Medication Instructions Recorded Confirmed Type No Known Home Medications 04/25/18 04/25/18 History Allergies Allergy/AdvReac Type Severity Reaction Status Date / Time No Known Drug Allergies Allergy Verified 01/02/18 13:30 Exam Vital Signs (past 8 hours): - 04/25/18 13:28 Blood Pressure 104/65 Narrative Exam Narrative: . General: Alert no apparent distress. Affect is appropriate. [place] it is uncomfortable. HEENT: Neck is supple without lymphadenopathy pupils equal round and reactive. Cardio: S1-S2 regular rate and rhythm. Respiratory: Lungs clear to auscultation. Abdomen: Gravid. Extremities: Normal deep tendon reflexes trace edema. [place]: Aixa intermittently heart tones: heart tones 135-140 category 1 Objective Labs Result Diagrams: 04/25/18 13:20 Labs: Laboratory Results - last 24 hr 04/25/18 04/25/18 13:20 13:20 WBC 10.1 RBC 3.41 L Hgb 10.4 L Hct 31.0 L MCV 90.8 MCH 30.4 MCHC 33.5 RDW 13.2 Plt Count 213 Neut % (Auto) 69.9 Lymph % (Auto) 22.1 L [place] % (Auto) 6.6 Eos % (Auto) 0.4 L Baso % (Auto) 1.0 Neut # (Auto) 7000 Lymph # (Auto) 2200 [place] # (Auto) 700 Eos # (Auto) 0 Baso # (Auto) 100 Blood Type A Positive Antibody Screen Negative Assessment & Plan Assessment & Plan narrative: 27-year-old G3 para 2 at term in early labor. Patient has a history of rapid deliveries. She will be transferred from the observation room to the labor room an IV was started. heart tones vital signs and blood will be drawn. Which were all stable she will have amniotomy and will monitor closely for breakfast vela of labor. She would like an epidural. Patient's consent was signed risks benefits of the labor and delivery reviewed with the patient.
[2018-04-25] MEDS: OXYTOCIN 10 UNIT/ML VIAL IM (18:16)
--- NOTE | 2018-04-25 18:27 | PM.PROC.1 ---
Procedures Date/Time Date of procedure: 04/25/18 Time of procedure: 18:27 General Procedure description: Stage I of labor approximately 5 hr. During stage I category 1 tracing. Patient had amniotomy of clear fluid. Patient had an epidural with great results. Patient has made great cervical change and good descent through the canal from -1 to +1 station. Stage II of labor approximately 1/2 an hour. Patient had category 1 tracing. With mild head compression which cause some variable heart rates. Patient had delivery of head without difficulty. There was a tight nuchal cord which was clamped and cut at the delivery of the head and the baby then spontaneously delivered well. Baby had vigorous cry. Apgars were 8 and 9. Stage III of labor 10 min delivery of intact placenta with three-vessel cord. No vaginal cervical or urethral 3 years. Uterus was firm. Estimated blood loss 200 cc.
[2018-04-25] MEDS: miSOPROStol 200 MCG TABLET 800 MCG PR (19:50)
--- NOTE | 2018-04-25 19:52 | P.PN_ITS ---
Subjective Date Patient Seen: 04/25/18 Time Patient Seen: 19:49 Interval history: bleeding Exam Vital Signs (past 8 hours): - 04/25/18 13:28 Blood Pressure 104/65 Narrative Exam Narrative: I was present in Labor and delivery when the nurses caring for Mary or concerned about the amount of bleeding she was doing. They measured 1 clot that was over 500 cc. Her uterus did firm with massage but then would relax and she would have more significant bleeding with massage. Decision was made to place 800 mg of Cytotec per rectum. Objective Labs Result Diagrams: 04/25/18 13:20 Labs: Laboratory Results - last 24 hr 04/25/18 04/25/18 13:20 13:20 WBC 10.1 RBC 3.41 L Hgb 10.4 L Hct 31.0 L MCV 90.8 MCH 30.4 MCHC 33.5 RDW 13.2 Plt Count 213 Neut % (Auto) 69.9 Lymph % (Auto) 22.1 L [place] % (Auto) 6.6 Eos % (Auto) 0.4 L Baso % (Auto) 1.0 Neut # (Auto) 7000 Lymph # (Auto) 2200 [place] # (Auto) 700 Eos # (Auto) 0 Baso # (Auto) 100 Blood Type A Positive Antibody Screen Negative Assessment & Plan (1) hemorrhage: Current visit: Yes Status: Acute Assessment & Plan narrative: Patient with hemorrhage. She was given Pitocin. 800 mcg of Cytotec placed rectally. Will monitor for further bleeding
[2018-04-25] MEDS: IBUPROFEN 600 MG TABLET PO (23:53)
[2018-04-26] MEDS: IBUPROFEN 600 MG TABLET PO ×2 (07:13→13:54)
[2018-04-26] MEDS: HYDROCODONE/ACET 5/325 TABLET 1 TAB PO (07:14)
--- NOTE | 2018-04-26 08:11 | PM.DS.1 ---
History of Present Illness Chief complaint: OBSERVATION Narrative: 26-year-old G3 para 2 with an estimated due date of 04/27/2018 consistent with LMP and early ultrasound. Patient presents to the labor and delivery floor with contractions up to every 2 min apart. Worse with activity better with rest. Patient is not complaining of bleeding or spotting or leaking of fluid. She has had good baby activity. Patient is not complaining of fevers chills nausea vomiting and is in good health. She previously had rapid deliveries. On examination in the Center. Patient is aixa intermittently dilated to 4 cm. Stretches cervix 80% effaced -1 station. Patient was sent toe walk for an hour and then came back in her cervix had changed on repeat evaluation. At that point she was transferred to labor and delivery floor and IV was started. history patient started care at approximately 8 weeks of gestational age. She had routine follow-up. She had a total weight gain of a 25 lb. She had no problems during her other than some mild hip pain and sciatic pain and a history of previous rapid labors. She was on vitamins and vitamin C during her . labs blood type A positive antibody screen negative CBC hematocrit 36.6 platelet count 215 VDRL nonreactive hepatitis-B surface antigen negative HIV negative rubella immune hep C negative HSV 1 HSV 2-varicella immune 2nd trimester is aneuploidy screening is negative is glucose challenge test was 134 ultrasound at 20 weeks showed normal growth and normal anatomy scan GBS status is negative. Patient's past history includes seasonal allergies migraine headaches intermittent and frequent urinary tract infection eczema and umbilical hernia Surgeries umbilical hernia surgery Discharge Providers Date of admission: 04/25/18 10:05 Discharge Date: 04/26/18 Primary care physician: Alvino Avilez MD Consults: 04/25/18 18:32 Consult to Brand Leader Routine Comment: Discharge provider: Alvino Avilez MD Summary Discharge Diagnosis: 27-year-old G3 now para 3 vaginal delivery of term male Routine post paulino care Hospital Course: Patient admitted the hospital in early active labor. At 3-4 cm aixa intermittently. Patient had rupture of membranes with clear fluid. Proceeded to then deliver vaginally a male without difficulty Apgars were 8 and 9. Blood loss was 200. Mom had routine care. Hemoglobin hematocrit was mildly low. Her pain was well controlled with ibuprofen vitamin she was given iron supplement mentation and stool softener. She was ambulating. She was tolerating her diet. Vaginal bleeding was appropriate. Breast-feeding was going well. Exam Narrative Exam Narrative: General: Alert no apparent distress HEENT: Pupils equal round and reactive or mucosa is moist neck is supple Cardio: S1-S2 regular rate rhythm Respiratory: Lungs are clear no wheezes or crackles Abdomen: Uterus is firm and at the umbilicus. Extremities: Mild trace edema. Negative Akers's. Objective Labs Result Diagrams: 04/25/18 13:20 Labs: Laboratory Results - last 24 hr 04/25/18 04/25/18 13:20 13:20 WBC 10.1 RBC 3.41 L Hgb 10.4 L Hct 31.0 L MCV 90.8 MCH 30.4 MCHC 33.5 RDW 13.2 Plt Count 213 Neut % (Auto) 69.9 Lymph % (Auto) 22.1 L [place] % (Auto) 6.6 Eos % (Auto) 0.4 L Baso % (Auto) 1.0 Neut # (Auto) 7000 Lymph # (Auto) 2200 [place] # (Auto) 700 Eos # (Auto) 0 Baso # (Auto) 100 Blood Type A Positive Antibody Screen Negative Discharge Plan Discharge Plan Patient Disposition: Home Discharge comment: Follow-up Dr. Avilez in 6 weeks. Discharge Med Rec/Prescriptions Prescriptions: New ibuprofen 600 mg Tablet 600 mg PO Q6HR PRN (Reason: Pain, Mild (1-3)) Qty: 30 RF: 0 docusate sodium 250 mg Capsule 250 mg PO DAILY Qty: 30 RF: 0 ferrous gluconate 324 mg (38 mg iron) Tablet 324 mg PO DAILY Qty: 30 RF: 0 Prenatabs Rx 29 mg iron- 1 mg Tablet 1 tab PO DAILY Qty: 90 RF: 3 Discharge Data Primary Care Provider: Alvino Avilez Attending Provider: Alvino Avilez Admit Date/Time: 04/25/18 10:05
--- NOTE | 2018-04-26 08:14 | P.DS_ITS ---
History of Present Illness Chief complaint: OBSERVATION Narrative: 26-year-old G3 para 2 with an estimated due date of 04/27/2018 consistent with LMP and early ultrasound. Patient presents to the labor and delivery floor with contractions up to every 2 min apart. Worse with activity better with rest. Patient is not complaining of bleeding or spotting or leaking of fluid. She has had good baby activity. Patient is not complaining of fevers chills nausea vomiting and is in good health. She previously had rapid deliveries. On examination in the Center. Patient is aixa intermittently dilated to 4 cm. Stretches cervix 80% effaced -1 station. Patient was sent toe walk for an hour and then came back in her cervix had changed on repeat evaluation. At that point she was transferred to labor and delivery floor and IV was started. history patient started care at approximately 8 weeks of gestational age. She had routine follow-up. She had a total weight gain of a 25 lb. She had no problems during her other than some mild hip pain and sciatic pain and a history of previous rapid labors. She was on vitamins and vitamin C during her . labs blood type A positive antibody screen negative CBC hematocrit 36.6 platelet count 215 VDRL nonreactive hepatitis-B surface antigen negative HIV negative rubella immune hep C negative HSV 1 HSV 2-varicella immune 2nd tri mester is aneuploidy screening is negative is glucose challenge test was 134 ultrasound at 20 weeks showed normal growth and normal anatomy scan GBS status is negative. Patient's past history includes seasonal allergies migraine headaches intermittent and frequent urinary tract infection eczema and umbilical hernia Surgeries umbilical hernia surgery Discharge Providers Date of admission: 04/25/18 10:05 Discharge Date: 04/26/18 Primary care physician: Alvino Avilez MD Consults: 04/25/18 18:32 Consult to Biomedical Instrument Technician Routine Comment: Discharge provider: Alvino Avilez MD Summary Discharge Diagnosis: 27-year-old G3 now para 3 vaginal delivery of term male infant Routine post care Hospital Course: Patient admitted the hospital in early active labor. At 3-4 cm aixa intermittently. Patient had rupture of membranes with clear fluid. Proceeded to then deliver vaginally a male without difficulty Apgars were 8 and 9. Blood loss was 200. Mom had routine care. Hemoglobin hematocrit was mildly low. Her pain was well controlled with ibuprofen vitamin she was given iron supplement mentation and stool softener. She was ambulating. She was tolerating her diet. Vaginal bleeding was appropriate. Breast-feeding was going well. Exam Narrative Exam Narrative: General: Alert no apparent distress HEENT: Pupils equal round and reactive or mucosa is moist neck is supple Cardio: S1-S2 regular rate rhythm Respiratory: Lungs are clear no wheezes or crackles Abdomen: Uterus is firm and at the umbilicus. Extremities: Mild trace edema. Negative Akers's. Objective Labs Result Diagrams: 04/25/18 13:20 Labs: Laboratory Results - last 24 hr 04/25/18 04/25/18 13:20 13:20 WBC 10.1 RBC 3.41 L Hgb 10.4 L Hct 31.0 L MCV 90.8 MCH 30.4 MCHC 33.5 RDW 13.2 Plt Count 213 Neut % (Auto) 69.9 Lymph % (Auto) 22.1 L [place] % (Auto) 6.6 Eos % (Auto) 0.4 L Baso % (Auto) 1.0 Neut # (Auto) 7000 Lymph # (Auto) 2200 [place] # (Auto) 700 Eos # (Auto) 0 Baso # (Auto) 100 Blood Type A Positive Antibody Screen Negative Discharge Plan Discharge Plan Patient Disposition: Home Discharge comment: Follow-up Dr. Avilez in 6 weeks. Discharge Med Rec/Prescriptions Prescriptions: New ibuprofen 600 mg Tablet 600 mg PO Q6HR PRN (Reason: Pain, Mild (1-3)) Qty: 30 RF: 0 docusate sodium 250 mg Capsule 250 mg PO DAILY Qty: 30 RF: 0 ferrous gluconate 324 mg (38 mg iron) Tablet 324 mg PO DAILY Qty: 30 RF: 0 Prenatabs Rx 29 mg iron- 1 mg Tablet 1 tab PO DAILY Qty: 90 RF: 3 Discharge Data Primary Care Provider: Alvino Avilez Attending Provider: Alvino Avilez Admit Date/Time: 04/25/18 10:05
[2018-04-26 08:27] LABS: Hematocrit 28.2 % (36-46); Hemoglobin 9.5 g/dL (12.0-16.0)
[2018-04-26] MEDS: PRENATAL VIT,CALC/IRON/FOLIC 1 TABLET 1 TAB PO (10:51)
[2018-04-26] MEDS: DOCUSATE 250 MG CAPSULE PO (10:51)
[2018-04-26] MEDS: FERROUS GLUCONATE 324 MG TABLET PO (10:51)
[2018-04-26 11:22] VITALS: BP 104/65; PULSE 65; RESP 16; TEMP 36.8
== END 2018-04-26 18:25 | disposition home or self-care (01) | DRG 768 ==
PROVIDERS: Admitting Provider Family Medicine; PCP Family Medicine; Visit Provider Family Medicine
DX: O69.1XX0 Labor and delivery complicated by cord around neck, with compression, not applicable or unspecified (principal); Z37.0 Single live birth; O72.1 Other immediate postpartum hemorrhage; Z3A.39 39 weeks gestation of pregnancy
CPT/HCPCS: 01967; 36415; 59050; 59400; 85014; 85018; 85025; 86850; 86900; 86901; G0379; J2590; S0191

== ENCOUNTER 2018-06-26 12:11 | Emergency (ER) | payer OTHER, SELFPAY ==
[2018-06-26 12:22] VITALS: BP 108/67; PULSE 82; RESP 17; TEMP 37; O2SAT 98; BMI 23.6
--- NOTE | 2018-06-26 12:51 | DI.RAD.S_ITS ---
PROCEDURE: XR CHEST 2V INDICATIONS: cough, short of breath TECHNIQUE: 2 views of the chest were acquired. COMPARISON: [facility], CT, CT ANGIO CHEST PE PROTOCOL, 01/02/2018, 13:57. FINDINGS: Surgical changes and devices: None. Lungs and pleura: There appears to be subtle airspace disease within the medial right lung base. No lobar consolidation, effusion, or pneumothorax is evident. Mediastinum: Mediastinal contours are normal. Heart size is normal. Bones and chest wall: No suspicious bony abnormalities. Soft tissues appear unremarkable. IMPRESSION: Right basilar pneumonia versus atelectasis. Dictated by: Jose Antonio Rao M.D. on 06/26/2018 at 12:27 Approved by: Jose Antonio Rao M.D. on 06/26/2018 at 12:29
--- NOTE | 2018-06-26 13:18 | ED.URI ---
HPI - URI/Sore Throat <ROBERT RizviBC - Last Filed: 06/26/18 14:17> General Chief Complaint: Upper Respiratory Symptoms Stated Complaint: chest pain/cough/body aches x4 days Time Seen by Provider: 06/26/18 12:45 Source: patient Mode of arrival: ambulatory Limitations: no limitations History of Present Illness HPI Narrative: The patient is a 27-year-old female nonsmoker who is with history of asthma who presents with a chief complaint of cough, body aches and chills for 4 days. She was seen at a walk-in clinic 2 days ago and diagnosed with an asthma exacerbation. She is on prednisone 20 mg daily. She is concerned she has pneumonia she has a history of pneumonia. She denies any nausea vomiting or diarrhea. She denies any fevers but complains of chills and muscle aches. She states her left ear her to few days ago, and she denies any sore throat at this point time, but states she had it severely 2 days ago. The patient states that she does not feel any worse than 2 days ago, but does not feel any better and is too busy to feel sick this long. Related Data Previous Rx's Medication Instructions Recorded ferrous gluconate 324 mg PO DAILY #30 tab 04/26/18 vit,[id number] 1 tab PO DAILY #90 tab 04/26/18 [Prenatabs Rx] norethindrone (contraceptive) 0.35 0.35 mg PO DAILY #84 tab 06/06/18 mg tablet albuterol sulfate HFA 90 1 puff INHALATION Q4-6H PRN #18 06/24/18 mcg/actuation aerosol inhaler gram prednisone 20 mg tablet 20 mg PO DAILY #5 tab 06/24/18 albuterol sulfate 2.5 mg INHALATION Q4-6H PRN #75 ml 06/26/18 azithromycin See Rx Instructions .ROUTE 06/26/18 .COMPLEX #6 tab nebulizer accessories #1 each 06/26/18 nebulizer and compressor #1 each 06/26/18 methylprednisolone 4 mg tablets in See Rx Instructions PO PER PKG DIR 06/29/18 a dose pack #21 each Allergies Allergy/AdvReac Type Severity Reaction Status Date / Time No Known Drug Allergies Allergy Verified 06/29/18 10:38 Review of Systems <PEDRITO Rizvi - Last Filed: 06/26/18 14:17> Review of Systems GENERAL: See HPI HEENT: Denies sinus pain, ear pain, sore throat, difficulty swallowing, dizziness. RESPIRATORY: See HPI CARDIOVASCULAR: Denies chest pain, palpitations, orthopnea, edema, GASTROINTESTINAL: Denies nausea, vomiting, abdominal pain, diarrhea, constipation, melena. : Denies dysuria, frequency, incontinence, hematuria, urinary retention. MUSCULOSKELETAL: denies weakness, joint pain, or bony pain SKIN: Denies rash, skin lesions, or other NEUROLOGIC: Denies weakness, headache, numbness, change in speech, confusion, seizures, incoordination. PSYCHIATRIC: No concerning psychosocial issues. 12 point review of systems is negative except for those stated above PFSH <PEDRITO Rizvi - Last Filed: 06/26/18 14:17> Medical History No significant past surgical history (Acute) Asthma with allergic rhinitis (Chronic) Eczema (Chronic) Frequent UTI (Chronic) Gastroparesis (Chronic) Irregular menstrual cycle (Chronic) Migraines (Chronic) Social History (Updated 01/02/18 @ 13:46 by García Nazario DO) marital status: Smoking Status: Never smoker Exam <PEDRITO Rizvi - Last Filed: 06/26/18 14:17> Narrative Exam Narrative: GENERAL: This is a well-nourished, well-developed patient, wearing a mask in no acute distress HEAD: Atraumatic. Normocephalic. No temporal or scalp tenderness. EYES: Pupils equal round and reactive. Extraocular motions intact. No scleral icterus. No injection or drainage. ENT: Nose without bleeding, purulent drainage or septal hematoma. Throat without erythema, tonsillar hypertrophy or exudate. Uvula midline. Airway patent. Bilateral TMs pearly maria. NECK: Trachea midline. No JVD or lymphadenopathy. Supple, nontender, no meningeal signs. CARDIOVASCULAR: Regular rate and rhythm without murmurs, gallops, or rubs. RESPIRATORY: Coarse lung sounds bilaterally. cough on exam. Speaking 5 words or so at a time. No accessory muscle use. No retractions. GASTROINTESTINAL: Abdomen soft, non-tender, nondistended. No hepato-splenomegaly, or palpable masses. No guarding. EXTREMITIES: No clubbing, cyanosis, or edema. No joint tenderness, effusion, or edema noted. BACK: Nontender without deformity or crepitance. No flank tenderness. NEURO: AOx3. SKIN: No rash or erythema. Initial Vital Signs Initial Vital Signs: Vital Signs Temperature 98.6 F 06/26/18 12:22 Pulse Rate 82 06/26/18 12:22 Respiratory Rate 17 06/26/18 12:22 Blood Pressure 108/67 06/26/18 12:22 Pulse Oximetry 98 06/26/18 12:22 <Billie Dexter DO - Last Filed: 06/30/18 11:27> Initial Vital Signs Initial Vital Signs: Vital Signs Temperature 98.6 F 06/26/18 12:22 Pulse Rate 82 06/26/18 12:22 Respiratory Rate 17 06/26/18 12:22 Blood Pressure 108/67 06/26/18 12:22 Pulse Oximetry 98 06/26/18 12:22 Course <PEDRITO Rizvi - Last Filed: 06/26/18 14:17> Orders Ordered: Discontinued Medications Albuterol (Ventolin) 2.5 mg INH NOW ONE Stop: 06/26/18 13:27 Vital Signs - 8 hr 06/26/18 12:22 06/26/18 13:28 Temperature 98.6 F Pulse Rate 82 101 H Respiratory Rate 17 16 Blood Pressure 108/67 Pulse Oximetry 98 96 <Billie Dexter DO - Last Filed: 06/30/18 11:27> Orders Ordered: Discontinued Medications Albuterol (Ventolin) 2.5 mg INH NOW ONE Stop: 06/26/18 13:27 Vital Signs - 8 hr 06/26/18 12:22 06/26/18 13:28 Temperature 98.6 F Pulse Rate 82 101 H Respiratory Rate 17 16 Blood Pressure 108/67 Pulse Oximetry 98 96 MDM - URI/Sore Throat <PEDRITO Rizvi Last Filed: 06/26/18 14:17> Imaging Data Chest x-ray: Radiologist's impression: [address] [id number] XRay Report Signed Patient: Mary Dimas [facility]#: [id number] : 1990Acct:[id number] Age/Sex: 27 / FDate of Service: 06/26/18 Loc: ED Accession Number: [id number] Procedure: XR chest 2V Ordering Provider: Marlena Almaraz PROCEDURE: XR CHEST 2V INDICATIONS: cough, short of breath TECHNIQUE: 2 views of the chest were acquired. COMPARISON: [facility], CT, CT ANGIO CHEST PE PROTOCOL, 01/02/2018, 13:57. FINDINGS: Surgical changes and devices: None. Lungs and pleura: There appears to be subtle airspace disease within the medial right lung base. No lobar consolidation, effusion, or pneumothorax is evident. Mediastinum: Mediastinal contours are normal. Heart size is normal. Bones and chest wall: No suspicious bony abnormalities. Soft tissues appear unremarkable. IMPRESSION: Right basilar pneumonia versus atelectasis. Dictated by: Jose Antonio Rao M.D. on 06/26/2018 at 12:27 Approved by: Jose Antonio Rao M.D. on 06/26/2018 at 12:29 MDM Narrative Medical decision making narrative: The patient is a 27-year-old female with history of asthma who presents with shortness of breath and productive cough. Her x-ray was concerning for pneumonia. She is breast-feeding at this time and would like to continue breast-feeding, so we elected to use azithromycin as it is safe to use during as per epocrates. She was seen and treated by respiratory therapist while in the emergency department and had improvement with her peak flows after nebulizer treatment. Thus I did give her a prescription for nebulizer as well as albuterol. I discussed continuing the steroids that were given to her at the walk-in clinic 2 days ago. Encouraged follow-up with primary care provider. Discussed return precautions of severe shortness of breath or acute concerns. No questions or concerns upon discharge. Discharge Plan Departure Patient Disposition: Home Clinical Impression: Pneumonia Qualifiers: Pneumonia type: due to unspecified organism Laterality: right Lung location: lower lobe of lung Qualified Code(s): J18.1 - Lobar pneumonia, unspecified organism Discharge Date/Time: 06/26/18 14:25 Interventions: ED Discharge Assessment Last Done: 06/26/18 14:23 Instructions: DI for Pneumonia -- Adult Activity Restrictions/Additional Instructions: Your chest x-ray shows pneumonia. This correlates with your symptoms. I have given you a prescription for azithromycin. As we discussed this is not the best antibiotic for pneumonia, but is safe to use during . I have also given her prescription for nebulizer to use at home. Please continue to use the steroids given to a few days ago. Please follow up with her primary care provider soon as possible. Please come back to emergency department for any acute concerns such as difficulty breathing, chest pain passing out etc. Prescriptions: New nebulizer accessories kit .ROUTE .MEDSUPPLY Qty: 1 RF: 0 nebulizer and compressor device .ROUTE .MEDSUPPLY Qty: 1 RF: 0 albuterol sulfate 2.5 mg /3 mL (0.083 %) solution for nebulization 2.5 mg INHALATION Q4-6H PRN (Reason: shortness of breath or wheezing) Qty: 75 RF: 0 azithromycin 250 mg tablet See Rx Instructions .ROUTE .COMPLEX Qty: 6 RF: 0 No Action norethindrone (contraceptive) 0.35 mg tablet 0.35 mg PO DAILY Qty: 84 RF: 1 prednisone 20 mg tablet 20 mg PO DAILY Qty: 5 RF: 0 albuterol sulfate 90 mcg/actuation HFA aerosol inhaler 1 puff INHALATION Q4-6H PRN (Reason: bronchospasm) Qty: 18 RF: 0 methylprednisolone [Medrol (Ryan)] 4 mg tablets,dose pack See Rx Instructions PO PER PKG DIR Qty: 21 RF: 0 ferrous gluconate 324 mg (38 mg iron) Tablet 324 mg PO DAILY Qty: 30 RF: 0 Prenatabs Rx 29 mg iron- 1 mg Tablet 1 tab PO DAILY Qty: 90 RF: 3 Referrals: Alvino Avilez MD [Primary Care Provider] - <Billie Dexter DO - Last Filed: 06/30/18 11:27> Cosign ED Attending Arjunature Attestation: I was immediately available in the department for consultation. Documentation has been reviewed. I agree with assessment and plan.
--- NOTE | 2018-06-26 13:24 | ED_ITS ---
HPI - URI/Sore Throat <RAUDEL Rizvi-BC - Last Filed: 06/26/18 14:17> General Chief Complaint: Upper Respiratory Symptoms Stated Complaint: chest pain/cough/body aches x4 days Time Seen by Provider: 06/26/18 12:45 Source: patient Mode of arrival: ambulatory Limitations: no limitations History of Present Illness HPI Narrative: The patient is a 27-year-old female nonsmoker who is breast feeding with history of asthma who presents with a chief complaint of cough, body aches and chills for 4 days. She was seen at a walk-in clinic 2 days ago and diagnosed with an asthma exacerbation. She is on prednisone 20 mg daily. She is concerned she has pneumonia she has a history of pneumonia. She denies any nausea vomiting or diarrhea. She denies any fevers but complains of chills and muscle aches. She states her left ear her to few days ago, and she denies any sore throat at this point time, but states she had it severely 2 days ago. The patient states that she does not feel any worse than 2 days ago, but does not feel any better and is too busy to feel sick this long. Related Data Previous Rx's Medication Instructions Recorded ferrous gluconate 324 mg PO DAILY #30 tab 04/26/18 vit,[id number] 1 tab PO DAILY #90 tab 04/26/18 [Prenatabs Rx] norethindrone (contraceptive) 0.35 0.35 mg PO DAILY #84 tab 06/06/18 mg tablet albuterol sulfate HFA 90 1 puff INHALATION Q4-6H PRN #18 06/24/18 mcg/actuation aerosol inhaler gram prednisone 20 mg tablet 20 mg PO DAILY #5 tab 06/24/18 albuterol sulfate 2.5 mg INHALATION Q4-6H PRN #75 ml 06/26/18 azithromycin See Rx Instructions .ROUTE 06/26/18 .COMPLEX #6 tab nebulizer accessories #1 each 06/26/18 nebulizer and compressor #1 each 06/26/18 methylprednisolone 4 mg tablets in See Rx Instructions PO PER PKG DIR 06/29/18 a dose pack #21 each Allergies Allergy/AdvReac Type Severity Reaction Status Date / Time No Known Drug Allergies Allergy Verified 06/29/18 10:38 Review of Systems <PEDRITO Rizvi - Last Filed: 06/26/18 14:17> Review of Systems GENERAL: See HPI HEENT: Denies sinus pain, ear pain, sore throat, difficulty swallowing, dizziness. RESPIRATORY: See HPI CARDIOVASCULAR: Denies chest pain, palpitations, orthopnea, edema, GASTROINTESTINAL: Denies nausea, vomiting, abdominal pain, diarrhea, constipation, melena. : Denies dysuria, frequency, incontinence, hematuria, urinary retention. MUSCULOSKELETAL: denies weakness, joint pain, or bony pain SKIN: Denies rash, skin lesions, or other NEUROLOGIC: Denies weakness, headache, numbness, change in speech, confusion, seizures, incoordination. PSYCHIATRIC: No concerning psychosocial issues. 12 point review of systems is negative except for those stated above PFSH <PEDRITO Rizvi - Last Filed: 06/26/18 14:17> Medical History No significant past surgical history (Acute) Asthma with allergic rhinitis (Chronic) Eczema (Chronic) Frequent UTI (Chronic) Gastroparesis (Chronic) Irregular menstrual cycle (Chronic) Migraines (Chronic) Social History (Updated 01/02/18 @ 13:46 by García Nazario DO) marital status: Smoking Status: Never smoker Exam <PEDRITO Rizvi - Last Filed: 06/26/18 14:17> Narrative Exam Narrative: GENERAL: This is a well-nourished, well-developed patient, wearing a mask in no acute distress HEAD: Atraumatic. Normocephalic. No temporal or scalp tenderness. EYES: Pupils equal round and reactive. Extraocular motions intact. No scleral icterus. No injection or drainage. ENT: Nose without bleeding, purulent drainage or septal hematoma. Throat without erythema, tonsillar hypertrophy or exudate. Uvula midline. Airway patent. Bilateral TMs pearly maria. NECK: Trachea midline. No JVD or lymphadenopathy. Supple, nontender, no meningeal signs. CARDIOVASCULAR: Regular rate and rhythm without murmurs, gallops, or rubs. RESPIRATORY: Coarse lung sounds bilaterally. cough on exam. Speaking 5 words or so at a time. No accessory muscle use. No retractions. GASTROINTESTINAL: Abdomen soft, non-tender, nondistended. No hepato- splenomegaly, or palpable masses. No guarding. EXTREMITIES: No clubbing, cyanosis, or edema. No joint tenderness, effusion, or edema noted. BACK: Nontender without deformity or crepitance. No flank tenderness. NEURO: AOx3. SKIN: No rash or erythema. Initial Vital Signs Initial Vital Signs: Vital Signs Temperature 98.6 F 06/26/18 12:22 Pulse Rate 82 06/26/18 12:22 Respiratory Rate 17 06/26/18 12:22 Blood Pressure 108/67 06/26/18 12:22 Pulse Oximetry 98 06/26/18 12:22 <Billie Dexter DO - Last Filed: 06/30/18 11:27> Initial Vital Signs Initial Vital Signs: Vital Signs Temperature 98.6 F 06/26/18 12:22 Pulse Rate 82 06/26/18 12:22 Respiratory Rate 17 06/26/18 12:22 Blood Pressure 108/67 06/26/18 12:22 Pulse Oximetry 98 06/26/18 12:22 Course <PEDRITO Rizvi - Last Filed: 06/26/18 14:17> Orders Ordered: Discontinued Medications Albuterol (Ventolin) 2.5 mg INH NOW ONE Stop: 06/26/18 13:27 Vital Signs - 8 hr 06/26/18 12:22 06/26/18 13:28 Temperature 98.6 F Pulse Rate 82 101 H Respiratory Rate 17 16 Blood Pressure 108/67 Pulse Oximetry 98 96 <Billie Dexter DO - Last Filed: 06/30/18 11:27> Orders Ordered: Discontinued Medications Albuterol (Ventolin) 2.5 mg INH NOW ONE Stop: 06/26/18 13:27 Vital Signs - 8 hr 06/26/18 12:22 06/26/18 13:28 Temperature 98.6 F Pulse Rate 82 101 H Respiratory Rate 17 16 Blood Pressure 108/67 Pulse Oximetry 98 96 MDM - URI/Sore Throat <PEDRITO Rizvi Last Filed: 06/26/18 14:17> Imaging Data Chest x-ray: Radiologist's impression: [address] [address] XRay Report Signed Patient: Mary Dimas [facility]#: [id number] : 1990Acct:[id number] Age/Sex: 27 / FDate of Service: 06/26/18 Loc: ED Accession Number: [id number] Procedure: XR chest 2V Ordering Provider: Marlena Almaraz PROCEDURE: XR CHEST 2V INDICATIONS: cough, short of breath TECHNIQUE: 2 views of the chest were acquired. COMPARISON: [facility], CT, CT ANGIO CHEST PE PROTOCOL, 01/02/2018, 13:57. FINDINGS: Surgical changes and devices: None. Lungs and pleura: There appears to be subtle airspace disease within the medial right lung base. No lobar consolidation, effusion, or pneumothorax is evident. Mediastinum: Mediastinal contours are normal. Heart size is normal. Bones and chest wall: No suspicious bony abnormalities. Soft tissues appear unremarkable. IMPRESSION: Right basilar pneumonia versus atelectasis. Dictated by: Jose Antonio Rao M.D. on 06/26/2018 at 12:27 Approved by: Jose Antonio Rao M.D. on 06/26/2018 at 12:29 MDM Narrative Medical decision making narrative: The patient is a 27-year-old female with history of asthma who presents with shortness of breath and productive cough. Her x-ray was concerning for pneumonia. She is breast-feeding at this time and would like to continue breast-feeding, so we elected to use azithromycin as it is safe to use during as per epocrates. She was seen and treated by respiratory therapist while in the emergency department and had improvement with her peak flows after nebulizer treatment. Thus I did give her a prescription for nebulizer as well as albuterol. I discussed continuing the steroids that were given to her at the walk-in clinic 2 days ago. Encouraged follow-up with primary care provider. Discussed return precautions of severe shortness of breath or acute concerns. No questions or concerns upon discharge. Discharge Plan Departure Patient Disposition: Home Clinical Impression: Pneumonia Qualifiers: Pneumonia type: due to unspecified organism Laterality: right Lung location: lower lobe of lung Qualified Code(s): J18.1 - Lobar pneumonia, unspecified organism Discharge Date/Time: 06/26/18 14:25 Interventions: ED Discharge Assessment Last Done: 06/26/18 14:23 Instructions: DI for Pneumonia -- Adult Activity Restrictions/Additional Instructions: Your chest x-ray shows pneumonia. This correlates with your symptoms. I have given you a prescription for azithromycin. As we discussed this is not the best antibiotic for pneumonia, but is safe to use during . I have also given her prescription for nebulizer to use at home. Please continue to use the steroids given to a few days ago. Please follow up with her primary care provider soon as possible. Please come back to emergency department for any acute concerns such as difficulty breathing, chest pain passing out etc. Prescriptions: New nebulizer accessories kit .ROUTE .MEDSUPPLY Qty: 1 RF: 0 nebulizer and compressor device .ROUTE .MEDSUPPLY Qty: 1 RF: 0 albuterol sulfate 2.5 mg /3 mL (0.083 %) solution for nebulization 2.5 mg INHALATION Q4-6H PRN (Reason: shortness of breath or wheezing) Qty: 75 RF: 0 azithromycin 250 mg tablet See Rx Instructions .ROUTE .COMPLEX Qty: 6 RF: 0 No Action norethindrone (contraceptive) 0.35 mg tablet 0.35 mg PO DAILY Qty: 84 RF: 1 prednisone 20 mg tablet 20 mg PO DAILY Qty: 5 RF: 0 albuterol sulfate 90 mcg/actuation HFA aerosol inhaler 1 puff INHALATION Q4-6H PRN (Reason: bronchospasm) Qty: 18 RF: 0 methylprednisolone [Medrol (Ryan)] 4 mg tablets,dose pack See Rx Instructions PO PER PKG DIR Qty: 21 RF: 0 ferrous gluconate 324 mg (38 mg iron) Tablet 324 mg PO DAILY Qty: 30 RF: 0 Prenatabs Rx 29 mg iron- 1 mg Tablet 1 tab PO DAILY Qty: 90 RF: 3 Referrals: Alvino Avilez MD [Primary Care Provider] - <Billie Dexter DO - Last Filed: 06/30/18 11:27> [facility] [place] Att[facility] Documentation has been reviewed. I agree with assessment and plan.
[2018-06-26 13:28] VITALS: PULSE 101; RESP 16; O2SAT 96
[2018-06-26 14:23] VITALS: BP 112/75; PULSE 82; RESP 16; TEMP 37.2; O2SAT 99
== END 2018-06-26 14:25 | disposition home or self-care (01) ==
PROVIDERS: Emergency Provider Nurse Practitioner Family; PCP Family Medicine
DX: J18.1 Lobar pneumonia, unspecified organism (principal)
CPT/HCPCS: 71046; 94150; 94640; 99282; 99283

== ENCOUNTER 2020-04-18 16:07 | Emergency (ER) | payer OTHER, SELFPAY ==
[2020-04-18 16:16] VITALS: BP 127/80; PULSE 80; RESP 16; TEMP 36.6; O2SAT 98; BMI 24.2
--- NOTE | 2020-04-18 16:45 | DI.CT.S_ITS ---
PROCEDURE: CT ABDOMEN PELVIS W CON INDICATIONS: RLQ, RUQ, pelvic pain + Ornelas, Mcburney, hx abd surg TECHNIQUE: After the administration of intravenous contrast, 5 mm thick sections acquired from the diaphragm to the symphysis. 5 mm coronal and sagittal reformats were acquired. For radiation dose reduction, the following was used: automated exposure control, adjustment of mA and/or kV according to patient size. COMPARISON: [facility], CT, ABDOMEN/PELVIS WITH CONTRAST, 03/26/2017, 13:18. FINDINGS: Image quality: Excellent. ABDOMEN: Lung bases: Lung bases are clear. Heart size is normal. Bilateral breast implants are noted. Solid organs: Liver is normal in size and enhancement. Gallbladder is unremarkable. Biliary system is non dilated. Pancreas enhances normally. Subtle pancreatic tail hypodensity represent volume averaging artifact with inferior margin of the adjacent fluid-filled stomach. This is best seen on the coronal view. Spleen is normal in size and enhancement. No adrenal nodules. Kidneys demonstrate normal size and enhancement, without hydronephrosis. Peritoneum and bowel: Bowel loops demonstrate normal wall thickness and caliber. No free fluid or air. Nodes and vessels: No retroperitoneal or mesenteric adenopathy by size criteria. Aorta and inferior vena cava are normal in size. Miscellaneous: No ventral hernias. PELVIS: Genitourinary: Urinary bladder wall thickness appears normal for degree of distension. Miscellaneous: No inguinal hernias. No pelvic adenopathy. Bones: No suspicious bony lesions. No acute vertebral body compression fractures. IMPRESSION: CT abdomen and pelvis without acute abnormalities to explain patient's symptoms. Specifically, no abnormalities identified in the right lower or right upper quadrant. If there is persistent clinical concern for acute cholecystitis, further evaluation with ultrasound can be considered. Pelvic ultrasound may also be considered for pelvic source of patient's symptoms. Dictated by: Donn Brooks M.D. on 04/18/2020 at 17:46 Approved by: Donn Brooks M.D. on 04/18/2020 at 17:53
--- NOTE | 2020-04-18 16:50 | ED.ABDPAIN ---
HPI - Abdominal Pain <Meron Carrasco PA-C - Last Filed: 04/18/20 21:16> General Chief Complaint: Abdominal Pain Stated Complaint: severe abdominal pain, thinks cyst burst Time Seen by Provider: 04/18/20 16:16 Source: patient Mode of arrival: Ambulatory History of Present Illness HPI narrative: This is a 29-year-old female with a history of abdominal hernia, diastasis rectus w/hernia and diastasis rectus repair, ovarian cyst who presents to the emergency department complaining of abdominal pain. She states that last night around 11:00 p.m. she had a sudden onset of significant lower abdominal pain she felt mostly in her pelvis she got up to go and get some ibuprofen and felt incredibly ill nauseous and sweaty. She took the ibuprofen and laid down she continued to have pain all night at a constnt low lwvel but more intense on and off. This morning her pain seemed like it was higher up in her abdomen and more on the right side. She says when she has been drinking fluids today is making her pain worse and makes her feel like she needs to vomit. This also happened when she tried to eat something. She is also having pain in her flank on the left side. She describes her pain as occurring every 15-30 minutes--she is still having low pain in her pelvis as well but notes that her pain up high is more bothersome currently. She has been feeling nauseous on and off all day today but has not vomited. She states ?if I had not previously given I think I probably would have come to the emergency department last night that is how bad the pain was?. She also states she had an episode of diarrhea this morning she says she normally has issues with constipation and was surprised because this morning she had a bowel movement seemed like she had a lot of urgency and it was diarrhea. She notes she Peed once this morning but really has not Peed since. Prior to last night when her pain started she was in her normal state of health. She does feel that the pain she has currently is similar to when she had an ovarian cyst but she also notes that feels similar to when her abdominal hernia was a problem for her. She had surgery to repair this and her diastasis which was significant after her in November of 2019. She denies fevers, chills, dysuria, back pain, shortness of breath, chest pain, ongoing diarrhea, vomiting, dyspareunia, vaginal blleding or discharge or any concern for STIs or any other symptoms. MD complaint: abdominal pain and other (Pelvic pain) Onset (ago): hour(s) (Eighteen) Pain Consistency: constant, intermittent and other (Constant underlying pain but intermittent more intense pains) Location: periumbilical, RUQ, RLQ and suprapubic Severity: moderate Severity scale (1-10): 6 Quality: cramping (Last night the pain was cramping) and burning (Today the pain feels burning a pack) Radiation: none Relieving factors: nothing Exacerbating factors: eating and other (Drinking fluids) Associated symptoms: nausea Treatments prior to arrival: NSAIDs (two ibuprofen last night) and other Related Data Previous Rx's Medication Instructions Recorded albuterol sulfate 90 mcg/actuation 1 puff INHALATION Q4-6H PRN #18 06/24/18 aerosol inhaler gram albuterol sulfate 2.5 mg INHALATION Q4-6H PRN #75 ml 06/26/18 nebulizer accessories #1 each 06/26/18 nebulizer and compressor #1 each 06/26/18 fluticasone propionate 110 2 puff INHALATION BID #12 gram 05/25/19 mcg/actuation HFA aerosol inhaler mometasone 100 mcg/actuation HFA 2 puff INHALATION BID #13 gram 05/25/19 aerosol inhaler lactulose 20 gram oral packet 20 g PO DAILY #90 each 01/09/20 sertraline 50 mg tablet 50 mg PO DAILY #30 tab 04/10/20 Allergies Allergy/AdvReac Type Severity Reaction Status Date / Time No Known Drug Allergies Allergy Verified 04/18/20 16:17 Review of Systems <Meron Carrasco PA-C - Last Filed: 04/18/20 21:16> Review of Systems Narrative: GENERAL: Denies chills, fatigue, malaise, fever, sweats. HEENT: Denies sinus pain, ear pain, sore throat, difficulty swallowing, dizziness. RESPIRATORY: Denies dyspnea, cough, wheezing, hemoptysis, sputum. CARDIOVASCULAR: Denies chest pain, palpitations, orthopnea, edema, GASTROINTESTINAL: Endorses nausea, denies vomiting, endorses abdominal pain, endorses 1 episode of diarrhea, endorses chronic intermittent constipation, denies melena. : Denies dysuria, frequency, incontinence, hematuria, urinary retention. MUSCULOSKELETAL: denies weakness, joint pain, or bony pain SKIN: Denies rash, skin lesions, or other NEUROLOGIC: Denies weakness, headache, numbness, change in speech, confusion, seizures, incoordination. PSYCHIATRIC: No concerning psychosocial issues. 12 point review of systems is negative except for those stated above ROS Unobtainable: All systems reviewed & are unremarkable except as noted in HPI and below Patient History <Meron Carrasco PA-C - Last Filed: 04/18/20 21:16> Medical History (Updated 04/18/20 @ 22:19 by García Nazario DO) Asthma with allergic rhinitis Eczema Frequent UTI Gastroparesis Irregular menstrual cycle Migraines Surgical History No significant past surgical history Family History Grandmother Age: 79 Heart disease High cholesterol Grandfather Age: 70 Cancer Hypertension High cholesterol Grandmother Age: 68 Skin cancer Heart disease Hypertension Brother No problems noted. Father No problems noted. Mother No problems noted. Social History (Updated 01/02/18 @ 13:46 by García Nazario DO) marital status: Smoking Status: Never smoker Smoking Status: Never smoker alcohol intake frequency: holidays/special occasions only Substance Use Type: does not use Exam <Meron Carrasco PA-C - Last Filed: 04/18/20 21:16> Narrative Exam Narrative: GENERAL: 29 year old patient appears stated age. Well-nourished, well-developed patient, in mild distress. HEAD: Atraumatic. Normocephalic. EYES: Pupils equal round and reactive. Extraocular motions intact. No scleral icterus. No injection or drainage. ENT: Nose without bleeding, purulent drainage. Throat without erythema, tonsillar hypertrophy or exudate. Airway patent. NECK: Trachea midline. Non tender CARDIOVASCULAR: Regular rate and rhythm without murmurs, gallops, or rubs. RESPIRATORY: Clear to auscultation. Breath sounds equal bilaterally. No wheezes, rales, or rhonchi. GASTROINTESTINAL: Abdomen soft, moderate periumbilical tenderness, significant right upper quadrant tenderness with positive Ornelas sign, right lower quadrant tenderness with positive McBurney's point tenderness, negative Rovsing, negative straight leg raise, positive obturators sign, positive heel tap, left CVA tenderness present, right CVA nontender, abdomen otherwise Non-tender, nondistended. EXTREMITIES: No edema or joint tenderness. BACK: Nontender without deformity or crepitance. No flank tenderness. NEURO: AOx3. SKIN: No rash or erythema of visible areas Initial Vital Signs Initial Vital Signs: Vital Signs Temperature 98 F 04/18/20 16:16 Pulse Rate 80 04/18/20 16:16 Respiratory Rate 16 04/18/20 16:16 Blood Pressure 127/80 04/18/20 16:16 Pulse Oximetry 98 04/18/20 16:16 <García Nazario DO - Last Filed: 04/18/20 22:42> Initial Vital Signs Initial Vital Signs: Vital Signs Temperature 98 F 04/18/20 16:16 Pulse Rate 80 04/18/20 16:16 Respiratory Rate 16 04/18/20 16:16 Blood Pressure 127/80 04/18/20 16:16 Pulse Oximetry 98 04/18/20 16:16 Course <Meron Carrasco PA-C - Last Filed: 04/18/20 21:16> Orders Ordered: ED Orders 04/18/20 16:38 Complete Blood Count AUTO DIFF Stat Comprehensive Metabolic Panel Stat Lipase Stat 04/18/20 16:45 CT abdomen pelvis w con Stat 04/18/20 18:25 US pelvic complete Stat 04/18/20 18:35 US abdomen limited Stat 04/18/20 19:26 Urinalysis and Microscopic Stat Sodium Chloride (Normal Saline 0.9%) 1,000 mls @ 150 mls/hr IV CONT SANKET Last Infusion: 04/18/20 22:34 Dose: 0 mls/hr Documented by: Admin: 04/18/20 17:02 Dose: 150 mls/hr Documented by: TARUN Discontinued Medications Hydromorphone HCl (Hydromorphone 0.5 Mg Inj) 0.5 mg IV NOW ONE Stop: 04/18/20 16:51 Last Admin: 04/18/20 17:02 Dose: 0.5 mg Documented by: TARUN Ketorolac Tromethamine (Ketorolac 60 Mg/2 Ml Vial) 15 mg IV NOW ONE Stop: 04/18/20 19:35 Last Admin: 04/18/20 19:49 Dose: 15 mg Documented by: TARUN Ondansetron HCl (Ondansetron 4 Mg/2 Ml Inj) 4 mg IV NOW ONE Stop: 04/18/20 16:45 Last Admin: 04/18/20 17:02 Dose: 4 mg Documented by: TARUN Pantoprazole Sodium (Pantoprazole 40 Mg Vial) 40 mg IV NOW ONE Stop: 04/18/20 18:38 Last Admin: 04/18/20 18:49 Dose: 40 mg Documented by: TARUN Vital Signs Vital signs: Vital Signs - 8 hr 04/18/20 16:16 04/18/20 18:08 04/18/20 22:35 Temperature 98 F Pulse Rate 80 53 L 78 Respiratory Rate 16 10 L 22 Blood Pressure 127/80 112/69 105/65 Pulse Oximetry 98 99 99 <García Nazario DO - Last Filed: 04/18/20 22:42> Orders Ordered: ED Orders 04/18/20 16:38 Complete Blood Count AUTO DIFF Stat Comprehensive Metabolic Panel Stat Lipase Stat 04/18/20 16:45 CT abdomen pelvis w con Stat 04/18/20 18:25 US pelvic complete Stat 04/18/20 18:35 US abdomen limited Stat 04/18/20 19:26 Urinalysis and Microscopic Stat Sodium Chloride (Normal Saline 0.9%) 1,000 mls @ 150 mls/hr IV CONT SANKET Last Infusion: 04/18/20 22:34 Dose: 0 mls/hr Documented by: Admin: 04/18/20 17:02 Dose: 150 mls/hr Documented by: TARUN Discontinued Medications Hydromorphone HCl (Hydromorphone 0.5 Mg Inj) 0.5 mg IV NOW ONE Stop: 04/18/20 16:51 Last Admin: 04/18/20 17:02 Dose: 0.5 mg Documented by: TARUN Ketorolac Tromethamine (Ketorolac 60 Mg/2 Ml Vial) 15 mg IV NOW ONE Stop: 04/18/20 19:35 Last Admin: 04/18/20 19:49 Dose: 15 mg Documented by: TARUN Ondansetron HCl (Ondansetron 4 Mg/2 Ml Inj) 4 mg IV NOW ONE Stop: 04/18/20 16:45 Last Admin: 04/18/20 17:02 Dose: 4 mg Documented by: TARUN Pantoprazole Sodium (Pantoprazole 40 Mg Vial) 40 mg IV NOW ONE Stop: 04/18/20 18:38 Last Admin: 04/18/20 18:49 Dose: 40 mg Documented by: TARUN Vital Signs Vital signs: Vital Signs - 8 hr 04/18/20 16:16 04/18/20 18:08 04/18/20 22:35 Temperature 98 F Pulse Rate 80 53 L 78 Respiratory Rate 16 10 L 22 Blood Pressure 127/80 112/69 105/65 Pulse Oximetry 98 99 99 MDM - Abdominal Pain <Meron Carrasco PA-C - Last Filed: 04/18/20 21:16> Differential Diagnosis Differential diagnosis: Likely abdominal pain, acute appendicitis, calculus of kidney, constipation, diverticulitis, pancreatitis, small bowel obstruction and other (Ovarian cyst, ureterolithiasis, cholecystitis, cholelithiasis, biliary colic) Medical Records Attestation: I reviewed the patient's medical records. Lab Data Attestation: I reviewed the patient's lab results. Result diagrams: 04/18/20 16:38 04/18/20 16:38 Labs: Lab Results 04/18/20 04/18/20 04/18/20 Range/Units 16:38 16:38 19:26 WBC 6.2 (4.5-11.0) X10^3/uL RBC 4.05 (4.0-5.2) X10^6/uL Hgb 13.4 (12.0-16.0) g/dL Hct 38.6 (36-46) % MCV 95.2 (80-100) fL MCH 33.0 (26-34) PG MCHC 34.7 (30-36) % RDW 12.5 (11.6-14.8) % Plt Count 189 (150-400) X10^3/uL Neut % (Auto) 46.0 L (50-75) % Lymph % (Auto) 41.4 H (25-40) % [place] % (Auto) 11.2 (3-14) % Eos % (Auto) 0.8 L (2-4) % Baso % (Auto) 0.6 (0-2) % Neut # (Auto) 2800 (1062-9447) /uL Lymph # (Auto) 2600 (7082-5693) /uL [place] # (Auto) 700 (0-900) /uL Eos # (Auto) 0 (0-450) /uL Baso # (Auto) 0 (0-100) /uL Sodium 135 L (137-145) mmol/L Potassium 3.9 (3.4-5.1) mmol/L Chloride 103 (98-107) mmol/L Carbon Dioxide 29 (22-32) mmol/L BUN 14 (7-17) mg/dL Creatinine 0.62 (0.52-1.04) mg/dL Estimated GFR > 60.0 (>60) mL/min BUN/Creatinine Ratio 22.6 H (6-22) Glucose 95 (70-100) mg/dL Calcium 9.6 (8.4-10.2) mg/dL Total Bilirubin 0.3 (0.2-1.3) mg/dL AST 21 (14-36) IU/L ALT 12 (<35) IU/L Alkaline Phosphatase 42 (38-126) U/L Total Protein 7.2 (6.3-8.2) g/dL Albumin 4.6 (3.5-5.0) g/dL Globulin 2.6 (1.7-4.1) g/dL Albumin/Globulin Ratio 1.8 (1.0-2.8) Lipase 89 (23-300) U/L Urine Color Yellow Urine Appearance Clear Urine pH 6.5 (4.5-8.0) Ur Specific [place] <=1.005 (1.000-1.035) Urine Protein Negative (Negative) Urine Glucose (UA) Negative (Negative) g/dL Urine Ketones Trace H (NEGATIVE) Urine Occult Blood 2+ H (Negative) Urine Nitrate Negative (Negative) Urine Bilirubin Negative (NEGATIVE) Urine Urobilinogen 0.2 (0.2) E.U./dL Ur Leukocyte Esterase Negative (NEGATIVE) Urine RBC 1-5/hpf (0-5/HPF) Urine WBC 0-1/hpf (0-5/HPF) Ur Squamous Epith Cells 1-5 /hpf (0-5/HPF) Urine Bacteria None seen (None) Ur Culture Indicated? Cult not indicated Point of care testing: Point of Care Testing Test Results Negative Imaging Data CT scan - abdomen/pelvis: Attestation: I personally reviewed and interpreted this imaging study as follows: Radiologist's Impression: [place] [id number] [place] [id number] Scan ReportSigned Patient: Mary Dimas MMR#: [id number]: [id number]:[id number]/Sex: 29 / FDate of Service: 04/18/20Loc: EDAccession Number: [id number] Procedure: CT abdomen pelvis w con Ordering Provider: Meron Carrasco P.A-C PROCEDURE: CT ABDOMEN PELVIS W CON INDICATIONS: RLQ, RUQ, pelvic pain + Ornelas, Schuylerey, hx abd surg TECHNIQUE: After the administration of intravenous contrast, 5 mm thick sections acquired from the diaphragm to the symphysis. 5 mm coronal and sagittal reformats were acquired. For radiation dose reduction, the following was used: automated exposure control, adjustment of mA and/or kV according to patient size. COMPARISON: [facility], CT, ABDOMEN/PELVIS WITH CONTRAST, 03/26/2017, 13:18. FINDINGS: Image quality: Excellent. ABDOMEN: Lung bases: Lung bases are clear. Heart size is normal. Bilateral breast implants are noted. Solid organs: Liver is normal in size and enhancement. Gallbladder is unremarkable. Biliary system is non dilated. Pancreas enhances normally. Subtle pancreatic tail hypodensity represent volume averaging artifact with inferior margin of the adjacent fluid-filled stomach. This is best seen on the coronal view. Spleen is normal in size and enhancement. No adrenal nodules. Kidneys demonstrate normal size and enhancement, without hydronephrosis. Peritoneum and bowel: Bowel loops demonstrate normal wall thickness and caliber. No free fluid or air. Nodes and vessels: No retroperitoneal or mesenteric adenopathy by size criteria. Aorta and inferior vena cava are normal in size. Miscellaneous: No ventral hernias. PELVIS: Genitourinary: Urinary bladder wall thickness appears normal for degree of distension. Miscellaneous: No inguinal hernias. No pelvic adenopathy. Bones: No suspicious bony lesions. No acute vertebral body compression fractures. IMPRESSION: CT abdomen and pelvis without acute abnormalities to explain patient's symptoms. Specifically, no abnormalities identified in the right lower or right upper quadrant. If there is persistent clinical concern for acute cholecystitis, further evaluation with ultrasound can be considered. Pelvic ultrasound may also be considered for pelvic source of patient's symptoms. Dictated by: Donn Brooks M.D. on 04/18/2020 at 17:46 Approved by: Donn Brooks M.D. on 04/18/2020 at 17:53 [facility] Narrative Medical decision making narrative: Well-appearing but uncomfortable 29-year-old with a history of abdominal hernia and diastasis repair, ovarian cyst presents complaining of abdominal pain. Pain began initially low down in her pelvis last night but today has been primarily up in the right upper quadrant as well as her left flank. Also with periumbilical tenderness. Most tender right upper quadrant also notably tender right lower quadrant. Initial concern for possible appendicitis versus gallbladder etiology versus ovarian cyst or torsion. Given the intermittent intensifying of her pain that she describes, ureterolithiasis or ovarian torsion seems more likely, intussusception would be unlikely in this 29-year-old female. Labs returned unremarkable CT scan was obtained for further evaluation given the number of potential etiologies for her pain and their location. This returned unremarkable ultrasound of pelvis and gallbladder liver was ordered for further evaluation. Pain treated with dilaudid and toradol, also received fluids and anti-emetics. <García Nazario, DO - Last Filed: 04/18/20 22:42> Lab Data Labs: Lab Results 04/18/20 04/18/20 04/18/20 Range/Units 16:38 16:38 19:26 WBC 6.2 (4.5-11.0) X10^3/uL RBC 4.05 (4.0-5.2) X10^6/uL Hgb 13.4 (12.0-16.0) g/dL Hct 38.6 (36-46) % MCV 95.2 (80-100) fL MCH 33.0 (26-34) PG MCHC 34.7 (30-36) % RDW 12.5 (11.6-14.8) % Plt Count 189 (150-400) X10^3/uL Neut % (Auto) 46.0 L (50-75) % Lymph % (Auto) 41.4 H (25-40) % [place] % (Auto) 11.2 (3-14) % Eos % (Auto) 0.8 L (2-4) % Baso % (Auto) 0.6 (0-2) % Neut # (Auto) 2800 (3419-9909) /uL Lymph # (Auto) 2600 (6220-0209) /uL [place] # (Auto) 700 (0-900) /uL Eos # (Auto) 0 (0-450) /uL Baso # (Auto) 0 (0-100) /uL Sodium 135 L (137-145) mmol/L Potassium 3.9 (3.4-5.1) mmol/L Chloride 103 (98-107) mmol/L Carbon Dioxide 29 (22-32) mmol/L BUN 14 (7-17) mg/dL Creatinine 0.62 (0.52-1.04) mg/dL Estimated GFR > 60.0 (>60) mL/min BUN/Creatinine Ratio 22.6 H (6-22) Glucose 95 (70-100) mg/dL Calcium 9.6 (8.4-10.2) mg/dL Total Bilirubin 0.3 (0.2-1.3) mg/dL AST 21 (14-36) IU/L ALT 12 (<35) IU/L Alkaline Phosphatase 42 (38-126) U/L Total Protein 7.2 (6.3-8.2) g/dL Albumin 4.6 (3.5-5.0) g/dL Globulin 2.6 (1.7-4.1) g/dL Albumin/Globulin Ratio 1.8 (1.0-2.8) Lipase 89 (23-300) U/L Urine Color Yellow Urine Appearance Clear Urine pH 6.5 (4.5-8.0) Ur Specific [place] <=1.005 (1.000-1.035) Urine Protein Negative (Negative) Urine Glucose (UA) Negative (Negative) g/dL Urine Ketones Trace H (NEGATIVE) Urine Occult Blood 2+ H (Negative) Urine Nitrate Negative (Negative) Urine Bilirubin Negative (NEGATIVE) Urine Urobilinogen 0.2 (0.2) E.U./dL Ur Leukocyte Esterase Negative (NEGATIVE) Urine RBC 1-5/hpf (0-5/HPF) Urine WBC 0-1/hpf (0-5/HPF) Ur Squamous Epith Cells 1-5 /hpf (0-5/HPF) Urine Bacteria None seen (None) Ur Culture Indicated? Cult not indicated Point of care testing: Point of Care Testing Test Results Negative MDM Narrative Medical decision making narrative: Dr nazario: Received turned over. Reviewed patient's history and physical and labs and radiologic studies performed up to this point. Ultrasounds of her abdomen and pelvis are unremarkable. Does not appear to be an infectious etiology. No surgical etiology found. She does state that her symptoms today felt very similar to when she was told that she had a ruptured ovarian cyst in the past. She also reports some improvement with Protonix. We did discuss her findings of her workup up to this point. We can hold on further workup for now. She will contact her primary provider for follow-up. Discussed return precautions and follow-up instructions. She expressed understanding and agreement. Discharge Plan Departure Patient Disposition: Home Clinical Impression: Abdominal pain Instructions: DI for Abdominal Pain-Adult Activity Restrictions/Additional Instructions: Your workup here in the emergency department is very reassuring. This includes your labs and CT scans and ultrasounds. I recommend that you consider taking a reflux medication such as famotidine/Pepcid. You can purchase this [id number]. I recommend taking this daily for the next 7-10 days and then as needed afterwards. If your symptoms worsen or change please return to the emergency department. Prescriptions: No Action lactulose 20 gram packet 20 g PO DAILY Qty: 90 RF: 0 sertraline 50 mg tablet 50 mg PO DAILY Qty: 30 RF: 3 albuterol sulfate 90 mcg/actuation HFA aerosol inhaler 1 puff INHALATION Q4-6H PRN (Reason: bronchospasm) Qty: 18 RF: 0 Flovent HFA 110 mcg/actuation HFA aerosol inhaler 2 puff INHALATION BID Qty: 12 RF: 5 Hold Instructions: backordered Asmanex HFA 100 mcg/actuation HFA aerosol inhaler 2 puff INHALATION BID Qty: 13 RF: 5 (DME) nebulizer accessories kit See Dose Instructions .ROUTE .MEDSUPPLY Qty: 1 RF: 0 (DME) nebulizer and compressor device See Dose Instructions .ROUTE .MEDSUPPLY Qty: 1 RF: 0 albuterol sulfate 2.5 mg /3 mL (0.083 %) solution for nebulization 2.5 mg INHALATION Q4-6H PRN (Reason: shortness of breath or wheezing) Qty: 75 RF: 0 Referrals: Alvino Avilez MD [Primary Care Provider] -
[2020-04-18 16:56] LABS: Add Manual Diff / Slide Review NO; Basophils Absolute Auto 0 /uL (0-100); Basophils Percent Auto 0.6 % (0-2); Eosinophils Absolute Auto 0 /uL (0-450); Eosinophils Percent Auto 0.8 % (2-4); Hematocrit 38.6 % (36-46); Hemoglobin 13.4 g/dL (12.0-16.0); Lymphocytes Absolute Auto 2600 /uL (1100-4500); Lymphocytes Percent Auto 41.4 % (25-40); Mean Corpuscular HGB Conc 34.7 % (30-36); Mean Corpuscular Volume 95.2 fL (80-100); Monocytes Absolute Auto 700 /uL (0-900); Monocytes Percent Auto 11.2 % (3-14); Neutrophils Absolute Auto 2800 /uL (1500-7000); Platelet Count 189 X10^3/uL (150-400); Red Blood Cell Count 4.05 X10^6/uL (4.0-5.2); Red Cell Distribution Width 12.5 % (11.6-14.8); White Blood Cell Count 6.2 X10^3/uL (4.5-11.0)
[2020-04-18] MEDS: HYDROMORPHONE 0.5 MG INJ IV (17:02)
[2020-04-18] MEDS: SODIUM CHLORIDE 0.9% 1,000 ML 150 ML IV (17:02)
[2020-04-18] MEDS: ONDANSETRON 4 MG/2 ML INJ IV (17:02)
[2020-04-18 17:09] LABS: Alanine Aminotransferase 12 IU/L (<35); Albumin 4.6 g/dL (3.5-5.0); Albumin Globulin Ratio 1.8 (1.0-2.8); Alkaline Phosphatase 42 U/L (38-126); Aspartate Aminotransferase 21 IU/L (14-36); BUN Creatinine Ratio 22.6 (6-22); Bilirubin Total 0.3 mg/dL (0.2-1.3); Blood Urea Nitrogen 14 mg/dL (7-17); Calcium 9.6 mg/dL (8.4-10.2); Carbon Dioxide 29 mmol/L (22-32); Chloride 103 mmol/L (98-107); Estimated Glomerular Filt Rate > 60.0 mL/min (>60); Globulin 2.6 g/dL (1.7-4.1); Glucose 95 mg/dL (70-100); HEMOLYSIS < 15 (0-50); Lipase 89 U/L (23-300); Potassium 3.9 mmol/L (3.4-5.1); Sodium 135 mmol/L (137-145); Total Protein 7.2 g/dL (6.3-8.2)
[2020-04-18 18:08] VITALS: BP 112/69; PULSE 53; RESP 10; O2SAT 99
--- NOTE | 2020-04-18 18:25 | DI.US.S_ITS ---
PROCEDURE: US PELVIC COMPLETE INDICATIONS: eval for torsion/cyst TECHNIQUE: Real-time scanning was performed of the pelvic organs, with image documentation. Additional endovaginal scanning was necessary due to incomplete visualization of the adnexal and endometrial structures by transabdominal scanning. COMPARISON: None. FINDINGS: Uterus: Uterus is normal in size at 8.8 x 4.1 x 5.4 cm. The endometrium measures 11 mm in combined thickness. Homogeneous uterine echotexture. No focal intrauterine mass. Ovaries: Right ovary measures 4.3 x 2.2 x 2.3 cm. Left ovary measures 3.2 x 2.5 x 1.8 cm. No ovarian or adnexal mass lesions. Normal vascular waveforms of the bilateral ovaries. Other: Small amount of fluid in the posterior cul-de-sac, likely physiologic. IMPRESSION: Pelvic ultrasound without acute sonographic abnormalities. No evidence for ovarian torsion. Small amount of pelvic free fluid likely physiologic in etiology. Dictated by: Donn Brooks M.D. on 04/18/2020 at 21:58 Approved by: Donn Brooks M.D. on 04/18/2020 at 22:00
--- NOTE | 2020-04-18 18:35 | DI.US.S_ITS ---
PROCEDURE: US ABDOMEN LIMITED INDICATIONS: Eval Gallbladder/Liver RUQ pain/N TECHNIQUE: Real-time scanning was performed of the abdominal and retroperitoneal organs, with image documentation. COMPARISON: None. FINDINGS: Liver: Liver is normal in size and homogeneous in echotexture. Gallbladder: Gallbladder is normal in sonographic appearance without gallstones, gallbladder wall thickening, pericholecystic fluid, or abnormal sonographic Ornelas's. Biliary ducts: Intrahepatic bile ducts are non-dilated. Extrahepatic bile duct caliber measures 2 mm. Normal is 6-7 mm or less in diameter, or 10 mm or less post-cholecystectomy. IMPRESSION: Abdomen without acute sonographic abnormalities. Please see separate report for dedicated imaging of the pelvic structures. Dictated by: Donn Brooks M.D. on 04/18/2020 at 21:57 Approved by: Donn Brooks M.D. on 04/18/2020 at 21:58
[2020-04-18] MEDS: PANTOPRAZOLE 40 MG VIAL IV (18:49)
[2020-04-18] MEDS: KETOROLAC 60 MG/2 ML VIAL 15 MG IV (19:49)
[2020-04-18 19:50] LABS: Bacteria Urine None Seen
[2020-04-18 19:51] LABS: Appearance Urine UA CLEAR; Bilirubin Urine UA NEGATIVE (NEGATIVE); Color Urine UA YELLOW; Glucose Urine UA NEGATIVE (Negative); Ketones Urine UA TRACE (NEGATIVE); Leukocyte Esterase Urine UA NEGATIVE (NEGATIVE); Nitrite Urine UA NEGATIVE (Negative); Occult Blood Urine UA 2+ (Negative); Protein Urine UA NEGATIVE (Negative); Specific Gravity Urine UA <=1.005 (1.000-1.035); Urobilinogen Urine UA 0.2 E.U./dL (0.2)
[2020-04-18 19:58] LABS: pH Urine UA 6.5 (4.5-8.0)
[2020-04-18 19:59] LABS: Culture Indicated Urine Cult Not Indicated; RBC Urine 1-5/HPF (0-5/HPF); Squamous Epithelial Cell Urine 1-5 /HPF (0-5/HPF); WBC Urine 0-1/HPF (0-5/HPF)
[2020-04-18 22:35] VITALS: BP 105/65; PULSE 78; RESP 22; O2SAT 99
== END 2020-04-18 22:47 | disposition home or self-care (01) ==
PROVIDERS: Student in an Organized Health Care Education/Training Program; Emergency Provider Emergency Medicine; PCP Family Medicine
DX: R10.9 Unspecified abdominal pain (principal)
CPT/HCPCS: 36415; 74177; 76705; 76830; 76856; 80053; 81001; 81025; 83690; 85025; 96361; 96374; 96375; 99284; C9113; J1170; J1885; J2405; Q9967

== ENCOUNTER 2020-08-08 07:58 | Emergency (ER) | payer OTHER, SELFPAY ==
[2020-08-08 08:00] VITALS: BP 125/73; PULSE 97; RESP 20; TEMP 36.9; O2SAT 100; BMI 23.4
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
[2020-08-08] MEDS: ACETAMINOPHEN 325 MG TABLET 650 MG PO (09:04)
[2020-08-08] MEDS: ONDANSETRON 4 MG ODT SL (09:04)
[2020-08-08 09:27] VITALS: BP 117/68; PULSE 79; O2SAT 100
== END 2020-08-08 09:28 | disposition short-term general hospital (02) ==
PROVIDERS: Emergency Provider Emergency Medicine; PCP Family Medicine
DX: T76.21XA Adult sexual abuse, suspected, initial encounter (principal)
CPT/HCPCS: 99283

== ENCOUNTER → 2020-10-15 10:49 | Outpatient (CLI) | payer OTHER, SELFPAY ==
[2020-10-15 12:32] LABS: Thyroid Stimulating Hormone 1.16 uIU/mL (0.47-4.68)
== END ==
PROVIDERS: PCP Family Medicine; Referring Provider Family Medicine; Visit Provider Family Medicine
DX: N92.6 Irregular menstruation, unspecified (principal)
CPT/HCPCS: 36415; 84443